=== PATIENT | male | born 1935 | race Caucasian/White ===

== ENCOUNTER 2019-03-30 11:49 | Inpatient (IN) | payer OTHER, BC ==
[2019-03-30] VITALS (8 sets, daily range): BP systolic 105–155
[~2019-03-30] VITALS: Ht 172.7 cm; Wt 94.8 kg
--- NOTE | 2019-03-30 12:14 | NUR ---
Patient to ER bed 8 to gown for evaluation. Side rails up. Report given to Kayla GARCIA.
--- NOTE | 2019-03-30 12:25 | NUR ---
pt arrives from an unknown board and care per Dr. Grover for increasing congestion and weakness. Pt is AAOx1. Currently non ambulatory. Crackles auscultated over epifanio lower lobes. Current os sat is 90% on RA. RT at the bedside to admin a breathing tx.
--- NOTE | 2019-03-30 12:48 | NUR ---
# 22 gauge angiocath placed to right hand. Use of asceptic technique. Opsite placed over site. Blood return noted. Blood for lab drawn from site. Flushed with 10 cc of normal saline. No evidence of infiltration noted. Patient tolerated well.
[2019-03-30] MEDS ORDERED: NACL 0.9% 1,000 ML IV ONE ×3 (12:49→15:00)
[2019-03-30] MEDS ORDERED: cefTRIAXone 1 GM IVPB PREMIX 50 ML IV ONE (13:00)
--- NOTE | 2019-03-30 13:00 | NUR ---
urine poonam obtained and sent to the lab
[2019-03-30 13:10] LABS: BASOPHILS % (AUTO) 0.3 % (0.0-2.0); EOSINOPHILS % (AUTO) 0.1 % (0.0-4.0); HEMATOCRIT 28.5 % (36-54); HEMOGLOBIN 9.1 g/dL (14.0-18.0); LYMPHOCYTES # (AUTO) 0.6 K/uL (1.0-5.5); LYMPHOCYTES % (AUTO) 4.2 % (20.5-51.5); MEAN CORPUSCULAR HEMOGLOBIN 29 pg (27-31); MEAN CORPUSCULAR HGB CONC 32 % (32-36); MEAN CORPUSCULAR VOLUME 92 fL (79.0-98.0); MONOCYTES # (AUTO) 1.1 K/uL (0.0-1.0); MONOCYTES % (AUTO) 7.5 % (1.7-9.3); NEUTROPHILS # (AUTO) 13.2 K/uL (1.8-7.7); NEUTROPHILS % (AUTO) 87.9 % (40.0-70.0); PLATELET COUNT (AUTO) 131 K/uL (130-430); RED BLOOD CELL COUNT(AUTO) 3.09 MIL/uL (4.2-6.2); RED CELL DISTRIBUTION WIDTH 18.7 % (9.0-15.0)
[2019-03-30 13:22] LABS: INR 1.5 (0.80-1.20); PROTHROMBIN TIME 15.2 SECS (9.5-12.5)
[2019-03-30 13:23] LABS: ANION GAP 8 (5-15); CALCIUM 7.5 mg/dL (8.4-11.0); CHLORIDE 105 mmol/L (98-107); CREATININE 0.77 mg/dL (0.55-1.30); GLUCOSE 111 mg/dL (70-99); POTASSIUM 3.2 mmol/L (3.5-5.1); SODIUM SERUM 141 mmol/L (136-145); UREA NITROGEN, BLOOD 26 mg/dL (8-21)
[2019-03-30 13:28] LABS: ALANINE AMINOTRANSFERASE 21 U/L (12-78); ALBUMIN 1.8 g/dL (3.4-4.8); AMYLASE 56 U/L (0-100); ASPARTATE AMINOTRANSFERASE 50 U/L (10-37); LIPASE 147 U/L (73-393)
--- NOTE | 2019-03-30 13:30 | NUR ---
Currently infusing Rocpehin per MD order
[2019-03-30 13:45] LABS: BILIRUBIN,URINE NEGATIVE (NEGATIVE); BLOOD, URINE NEGATIVE (NEGATIVE); CLARITY/URINE CLEAR (CLEAR); COLOR,URINE YELLOW (YELLOW); GLUCOSE,URINE NEGATIVE (NEGATIVE); KETONES,URINE TRACE (NEGATIVE); LEUKOCYTE ESTERASE ,URINE NEGATIVE (NEGATIVE); NITRITE, URINE NEGATIVE (NEGATIVE); PH,URINE 5.5 (5.0-8.0); PROTEIN URINE TRACE (NEGATIVE)
[2019-03-30] MEDS ORDERED: ALBUTEROL SULFATE 0.083% 2.5 MG/3 ML VIAL.NEB INH ONE (14:15)
[2019-03-30] MEDS ORDERED: AZITHROMYCIN 500 MG in NS 250 ML IV ONE (14:15)
[2019-03-30] MEDS ORDERED: IPRATROPIUM BROM 0.5 MG/2.5 ML VIAL.NEB (ATROVENT) INH ONE (14:15)
[2019-03-30] MEDS ORDERED: AZITHROMYCIN 500 MG/VIAL (ZITHROMAX) IV ONE (15:10)
--- NOTE | 2019-03-30 15:15 | NUR ---
Currently infusing Zithromax per MD order.
--- NOTE | 2019-03-30 15:36 | NUR ---
pt is infusing 2nd liter of NS. Rocpehin IVPB infused. Currently infusing Zithromax IVPB for sepsis protocol.
[2019-03-30] MEDS ORDERED: LIP80 PO (15:45)
[2019-03-30] MEDS ORDERED: BENA40TA8 PO (15:45)
[2019-03-30] MEDS ORDERED: ACET167L15 PO (15:45)
[2019-03-30] MEDS ORDERED: ISOS30TA6 PO (15:45)
[2019-03-30] MEDS ORDERED: METO25TA6 PO (15:45)
[2019-03-30] MEDS ORDERED: PRO40 PO (15:45)
[2019-03-30] MEDS ORDERED: ASPI-1153 PO (15:45)
--- NOTE | 2019-03-30 16:06 | NUR ---
Medication reconciliation completed with information provided by pt. Any prior medication reconciliation on file was reviewed and corrected.
--- NOTE | 2019-03-30 16:54 | NUR ---
pt will be admitted under the care of Dr. Grover orders received.
[2019-03-30] MEDS ORDERED: cefTRIAXone 1 GM IVPB PREMIX 50 ML IV SCH (17:15)
[2019-03-30] MEDS ORDERED: AZITHROMYCIN 500 MG in NS 250 ML IV SCH (18:00)
--- NOTE | 2019-03-30 18:30 | NUR ---
Sepsis Protocol: Pt received 3l of NS. Rocephin IV and Zithromax IV.
--- NOTE | 2019-03-30 18:48 | NUR ---
Transfer to ICU 1 via ACLS protocol. Licensed nurse present. IV present no signs or symptoms of infiltration.
--- NOTE | 2019-03-30 19:00 | NUR ---
AT 1838 P.M, ADMITTED PATIENT TO ICU ROOM 1, FROM [facility], RECEIVED NURSING REPORT FROM Alicia GIPSON R.N, THIS IS A 83 YEARS OLD MALE, DIAGNOSIS : WHITE OUT PNEUMONIA, PATIENT IS AWAKE, CONFUSION, URDU ONLY, VITAL SIGN:TEMPERATURE : 99.F,H.R 90 IS A-fib, RESPIRATORY RATE 26,O2 SAT. 92-93 % WITH NASAL CANNULA 2 LPM, B.P 155/84 [facility] ORDERED CONSULT BRANDIN HAWKINS AND SADIQ MIGUEL FOR PNEUMONIA
--- NOTE | 2019-03-30 19:17 | NUR ---
DR. GHOTRA CALLED BACK , WAS AWARE FOR NEW PATIENT PULMONARY CONSULT
--- NOTE | 2019-03-30 19:23 | NUR ---
GIVE COMPLETE NURSING REPORT TO USABILITY ARCHITECTWINIFRED GALLO R.N
--- NOTE | 2019-03-30 20:00 | NUR ---
RECEIVED AT 1838 FROM ER DEPT VIA XANDER AN 83 YO MALE, WITH DIAGNOSIS OF WHITEOUT PNA. AWAKE, ALERT, ORIENTEDX2. SPEAKS BASICALLY ERITREAN AND VERY LITTLE BROKEN VIETNAMESE. PT IS A POOR HISTORIAN. ON O2 AT 2L/MIN/NC. POX 94%. BREATH SOUNDS WITH CRACKLES. OCCASIONAL MOIST SEMI-PRODUCTIVE COUGH NOTED. BOWEL SOUNDS (+). PULSES PALPABLE. SKIN W/D. COLOR SATISFACTORY. HOB UP TO COMFORT. SIDE RAILS UPX3. CALL LIGHTS WITHIN REACH. AFB VS SR W/ LBBB. JUNG SCD'S PUT IN PLACE. DR GHOTRA HERE, SEEN PT. NEW ORDERS GIVEN TO BE IMPLEMENTED.
--- NOTE | 2019-03-30 20:25 | NUR ---
CONSULT - DR. Deepika BABCOCK Reason for Consultation: PNA Person Who was Notified: ESTEBAN Consulting Physician: DR. MYRIAM BABCOCK Embosser Operator Specialty: ID Ordering Physician: DR. MONROY
--- NOTE | 2019-03-30 20:50 | NUR ---
DR Deepika BABCOCK CALLED, UPDATED ON PT STATUS. STATES HE'LL SEE PT IN AM. .
--- NOTE | 2019-03-30 21:25 | NUR ---
VOIDED 80CC CLEAR YADI URINE VIA URINAL W/ 1 NURSE ASSIST.
[2019-03-30] MEDS ORDERED: IPRATROPIUM/ALBUTEROL SULFATE 3 ML AMPUL.NEB (DUONEB) INH PRN (21:30)
--- NOTE | 2019-03-30 22:00 | NUR ---
HS CARE DONE. TURNED AND REPOSITIONED.
[2019-03-30] MEDS ORDERED: PIPERACILLIN/TAZOBACTAM 3.375 GM/VIAL (ZOSYN) IV ONE (22:29)
[2019-03-30] MEDS: PIPERACILLIN/TAZO 3.375/DEX-IS 50 ML IV SCH (23:47)
[2019-03-31] VITALS (18 sets, daily range): BP systolic 97–144
--- NOTE | 2019-03-31 | NUR ---
AWAKE. MRSA SWAB SENT TO LAB. SOMETIMES DESATURATES. MOUTH BREATHER.
[2019-03-31] MEDS: IPRATROPIUM/ALBUTEROL SULFATE 3 ML AMPUL.NEB (DUONEB) INH SCH ×4 (00:40→20:19)
--- NOTE | 2019-03-31 02:00 | NUR ---
DOZES ON AND OFF. SHOUTING OUT WORDS, CALLING OUT NAMES WHEN ASLEEP.
--- NOTE | 2019-03-31 04:00 | NUR ---
SLEPT FOR LONG PERIODS OF TIME. VSS. 0 DISTRESS.
--- NOTE | 2019-03-31 05:00 | NUR ---
LEFT HAND IV INADVERTENTLY DISLODGED. IV RESTARTED ON RIGHT ANTECUBITAL USING ASEPTIC TECNIQUE, X 1 ATTEMPT, GAUGE # 20.
--- NOTE | 2019-03-31 05:10 | NUR ---
INCONTINENT OF URINE. CHG BATH GIVEN. ORAL CARE, LISANDRO-CARE, BACK CARE, SKIN CARE DONE. PARTIAL LINEN CHANGE. MINIMAL ASSIST WITH TURNING. ANITA PROC WELL.
[2019-03-31] MEDS: PIPERACILLIN/TAZO 3.375/DEX-IS 50 ML IV SCH ×4 (05:49→23:56)
--- NOTE | 2019-03-31 06:00 | NUR ---
BOUTS OF CONFUSION. TURNED Q2 HRS. CALLING OUT NAMES. REMAINS IN GUARDED CONDITION.
[2019-03-31 06:31] LABS: BASOPHILS # (AUTO) 0.1 K/uL (0.0-0.2); BASOPHILS % (AUTO) 0.4 % (0.0-2.0); EOSINOPHILS % (AUTO) 0.2 % (0.0-4.0); HEMATOCRIT 27.3 % (36-54); HEMOGLOBIN 8.7 g/dL (14.0-18.0); LYMPHOCYTES # (AUTO) 0.7 K/uL (1.0-5.5); LYMPHOCYTES % (AUTO) 5.4 % (20.5-51.5); MEAN CORPUSCULAR HEMOGLOBIN 30 pg (27-31); MEAN CORPUSCULAR HGB CONC 32 % (32-36); MEAN CORPUSCULAR VOLUME 93 fL (79.0-98.0); MONOCYTES # (AUTO) 1.2 K/uL (0.0-1.0); MONOCYTES % (AUTO) 9.1 % (1.7-9.3); NEUTROPHILS # (AUTO) 10.8 K/uL (1.8-7.7); NEUTROPHILS % (AUTO) 84.9 % (40.0-70.0); PLATELET COUNT (AUTO) 110 K/uL (130-430); RED BLOOD CELL COUNT(AUTO) 2.95 MIL/uL (4.2-6.2); RED CELL DISTRIBUTION WIDTH 18.9 % (9.0-15.0); WHITE BLOOD COUNT (AUTO) 12.7 K/uL (4.8-10.8)
[2019-03-31 06:39] LABS: ANION GAP 9 (5-15); CALCIUM 7.1 mg/dL (8.4-11.0); CHLORIDE 108 mmol/L (98-107); CREATININE 0.68 mg/dL (0.55-1.30); GLUCOSE 96 mg/dL (70-99); POTASSIUM 3.1 mmol/L (3.5-5.1); SODIUM SERUM 143 mmol/L (136-145); UREA NITROGEN, BLOOD 19 mg/dL (8-21)
[2019-03-31] MEDS: ACETYLCYSTEINE 20% 4 ML VIAL (RT) INH SCH ×3 (07:16→20:20)
--- NOTE | 2019-03-31 07:25 | NUR ---
Received patient from [facility] shift nurse. Patient in no acute distress.
--- NOTE | 2019-03-31 08:30 | NUR ---
Paged MD Grover for diet order.
[2019-03-31] MEDS ORDERED: POTASSIUM CHLORIDE 20 MEQ TAB.PRT.SR PO ONE (10:00)
--- NOTE | 2019-03-31 10:20 | NUR ---
MD Grover paged regarding diet order.
--- NOTE | 2019-03-31 11:30 | NUR ---
MD Grover paged a third time regarding diet order.
--- NOTE | 2019-03-31 11:48 | NUR ---
notes: paged MD MONROY for diet order, s/w bekah answering services. waiting to callback.
--- NOTE | 2019-03-31 13:50 | NUR ---
Called MD Grover for diet order, new order 2 gram sodium pureed diet, orders placed and contacted kitchen.
[2019-03-31] MEDS ORDERED: cefTRIAXone 1 GM IVPB PREMIX 50 ML IV SCH ×2 (14:00→17:00)
--- NOTE | 2019-03-31 14:10 | NUR ---
Patient refused lunch, stated not hungry.
--- NOTE | 2019-03-31 16:30 | NUR ---
Paged MD Grover regarding possible transfer to tele floor, order approved to change patient to tele status and transfer patient. Orders placed.
--- NOTE | 2019-03-31 16:38 | NUR ---
Stained Glass Installer Conduct interview for DCPA. OCCUPATIONAL THERAPIST'S ASSISTANT met with pt. He spoke Mongolian and a little Armenian. Pt was not able to assist with questions. When OCCUPATIONAL THERAPIST'S ASSISTANT asked if he had a contact, friend or family pt got a little upset, almost teary eyed. OCCUPATIONAL THERAPIST'S ASSISTANT left and stated she did not want to upset him. Earl Membreno thinks pt. is form [facility]. paperhanger assistantRn. Rosenbaum called to tell OCCUPATIONAL THERAPIST'S ASSISTANT Pt has a friend visiting. Earl Rosenbaum translated for OCCUPATIONAL THERAPIST'S ASSISTANT while she visited with pt. and pts. friend Priyank Henderson, . Priyank had a hard time explaining pts. background. He and pt. are just friends and Priyank would take pt to his soccer games. As pt. became more weak, he was not able to take him to the games. Priyank's called his soccer coaches , Delmis Mares, . OCCUPATIONAL THERAPIST'S ASSISTANT was able to get some background on pt. from Delmis who stated, pt. use to live at the address on the face sheet, [address] [place] [address] in [facility], [address]. The phone listed is , . Delmis said pt. lived there in this "[place] in [place]" for 30 years. When pt. had to be hospitalized in [place], the social group worker at that hospital was able to find him a room to rent in [place]. The woman who ran the board and care would come in and prep. meals twice a week and label the food for all the people who stayed there including this pt. Luis Fernando Redd Sevilla. They would all have to get their food, heat it up, do their own laundry etc. Delmis was upset because she stated ptNellie Gould was not capable of completing all these daily living skills it the cost was $900 of his $1000 Social Security income. It sounded like pt is not able to go back due to needed a higher level of care. Priyank stated pt. has no friends of family. OCCUPATIONAL THERAPIST'S ASSISTANT told him he was a good friend and thanked him for his assistance and connecting her to Delmis who was able to fill in some of the blanks. OCCUPATIONAL THERAPIST'S ASSISTANT will fill out a homeless waiver and fill our a DCPA with the limited info.
[2019-03-31] MEDS: AZITHROMYCIN 500 MG in NS 250 ML IV SCH (16:41)
[2019-03-31] MEDS ORDERED: AZITHROMYCIN 500 MG in NS 250 ML IV SCH (18:00)
--- NOTE | 2019-03-31 19:27 | NUR ---
Transferred patient to tele room 132 C, endorsed patient to oncoming shift nurse and gave report. Patient was transported by bed via portable tele monitor and portable 02 NC 2 liters. Patient tolerated transfer well, in no acute distress, denies pain. Breathing even and unlabored. Side rails x 3 up.
--- NOTE | 2019-03-31 19:35 | NUR ---
OPENING NOTES Patient is resting, no signs of acute respiratory distress observed, 2L NC. IV site patent, dressings c/d/i. SCDs on, call light within reach, bed at lowest position. Will continue to monitor.
--- NOTE | 2019-03-31 22:14 | NUR ---
Patient is confused, worried about going back to work, chinese speaking. Safety precautions in place. Will continue to monitor.
[2019-04-01] VITALS: BP_SYST 113
--- NOTE | 2019-04-01 00:15 | NUR ---
Patient is confused, reoriented patient that it is past midnight and that it is time to rest. Will continue to monitor.
[2019-04-01] MEDS: IPRATROPIUM/ALBUTEROL SULFATE 3 ML AMPUL.NEB (DUONEB) INH SCH ×4 (01:11→19:53)
--- NOTE | 2019-04-01 02:23 | NUR ---
Patient is resting, no signs of acute respiratory distress observed, 3L NC. IV Saline lock. Will continue to monitor.
--- NOTE | 2019-04-01 04:11 | NUR ---
Patient is resting, confused and speaking continuously, IV site patent, Will continue to monitor.
[2019-04-01] MEDS: PIPERACILLIN/TAZO 3.375/DEX-IS 50 ML IV SCH ×3 (05:15→18:04)
--- NOTE | 2019-04-01 07:03 | NUR ---
CLOSING NOTES Patient is resting, no signs of acute respiratory distress observed, 3L NC. IV site patent, dressings c/d/i. Call light within reach, bed alarm on, bed at lowest position. All needs met throughout shift. Will endorse care to oncoming shift.
[2019-04-01 07:07] LABS: BASOPHILS % (AUTO) 0.4 % (0.0-2.0); EOSINOPHILS % (AUTO) 0.2 % (0.0-4.0); HEMATOCRIT 25.4 % (36-54); HEMOGLOBIN 8.2 g/dL (14.0-18.0); LYMPHOCYTES # (AUTO) 0.6 K/uL (1.0-5.5); LYMPHOCYTES % (AUTO) 4.9 % (20.5-51.5); MEAN CORPUSCULAR HEMOGLOBIN 30 pg (27-31); MEAN CORPUSCULAR HGB CONC 32 % (32-36); MEAN CORPUSCULAR VOLUME 92 fL (79.0-98.0); MONOCYTES # (AUTO) 1.1 K/uL (0.0-1.0); MONOCYTES % (AUTO) 9.3 % (1.7-9.3); NEUTROPHILS % (AUTO) 85.2 % (40.0-70.0); PLATELET COUNT (AUTO) 102 K/uL (130-430); RED BLOOD CELL COUNT(AUTO) 2.77 MIL/uL (4.2-6.2); RED CELL DISTRIBUTION WIDTH 18.5 % (9.0-15.0); WHITE BLOOD COUNT (AUTO) 11.8 K/uL (4.8-10.8)
[2019-04-01] MEDS: ACETYLCYSTEINE 20% 4 ML VIAL (RT) INH SCH ×2 (07:22→19:55)
--- NOTE | 2019-04-01 07:50 | NUR ---
AM ASSESSMENT. PT SPEAKS INDONESIAN, STAFF TRANSLATED WORDS, PT AFEBRILE, REPOSITIONED IN BED, LUNGS SOUNDS CONGESTED, BREATHING NON LABORED, ON O2 AT 3L MIN VIA NASAL CANNULA, SAT UP HIGH IN BED PRIOR TO BREAKFAST, WILL CONTINUE TO MONITOR.
[2019-04-01 08:00] VITALS: BP_SYST 109
--- NOTE | 2019-04-01 09:40 | NUR ---
Nutrition Update Garry Scale 15 noted. Pt admitted for white out pneumonia. Diet: 2 gm Na, puree BMI: 31.9 kg/m2 RD to follow per nutrition care standards.
--- NOTE | 2019-04-01 11:50 | NUR ---
IV. RIGHT FOREARM IV INFILTRATED, IV CATHETER DCD. NEW IV INSERTED INTO LEFT HAND, USING 20 GAUGE CATHETER, GOOD BLOOD RETURN NOTED.
--- NOTE | 2019-04-01 12:11 | NUR ---
CONSULT NEUROLOGY INCREASED CONFUSION ASHER ORTA [phone] S/W [place] EXCHANGE
[2019-04-01 12:45] VITALS: BP_SYST 120
--- NOTE | 2019-04-01 14:21 | NUR ---
DISCHARGE PLANNING Spoke reese Mares @ bedside. States that she is a friend of pt, that pt has no family, had a son that in automobile accident. States pt's closest friend is Miguel Henderson, he drives pt & visits him often. Would like SNF in [facility] since that is where Krystian lives. No Advanced Directive or POA, would like to have one done w Miguel as POA once pt is alert & oriented.
--- NOTE | 2019-04-01 14:36 | NUR ---
Dietitian Recommendations * Recommend continuing 2 gm Na, puree diet (ONS Ensure Enlive TID comes standard w/ this diet; provides 1050 kcal/day, 60 gm protein/day) * Encourage increase PO intakes LP, RD Please refer to Nutrition Assessment for details. Addendum: 04/01/19 at [address] Amended: Links added.
[2019-04-01] MEDS: AZITHROMYCIN 500 MG in NS 250 ML IV SCH (15:04)
--- NOTE | 2019-04-01 15:37 | NUR ---
Discharge Planning: WVP faxed pt referral to [facility] and [facility]. DCP to follow up. Addendum: 04/01/19 at 1647 by Tsering Escobedo DP DCP faxed referral to Yuridia eddy ZortmanNellie DCP to follow up
--- NOTE | 2019-04-01 16:13 | NUR ---
Board Certified Behavioral Analyst Note Patient referred by Dr Smith regarding patient's ability to consent to a bronchoscopy. WATER LEAK REPAIRER spoke with patient's friends, Delmis Vishnu [phone], and Edison Mixon, . They stated that patient has made his own decisions in the past. He was not coherent yesterday but is much better today. Another friend, Juan Antonio Henderson, , who has known patient for 20 years, is willing to sign consents for patient when needed. Provided Advanced Directivein Irish. WATER LEAK REPAIRER met with patient and friends at bedside. Patient is drowsy and primarily speaks Irish. Patient was able to communicate and, with friends translating, agreed that he would want a bronchoscopy done. WATER LEAK REPAIRER explained that in order to get the formal consent signed, a doctor or nurse would need to explain the procedure in more detail with a strength and conditioning coach. Patient also agreed that he would like his friend, Juan Antonio, to assist with decision making. Juan Antonio visits patient regularly and plans to visit [facility]. At this moment, patient appears to be able to sign his own consent. Housing history as per friendDelmis: At a private residence in [place] for 30 years, cannot return. To [facility] then to a SNF for about one week (at this time unknown). To an assisted living run by Camille, , [id number] [facility] [address]. Patient may need SNF before returning to the assisted living, or intermediate SNF. Left Camille a voicemail asking for the name of the SNF. Delmis may also be able to provide the name of the SNF tomorrow. Will continue to follow. Addendum: 04/01/19 at 1646 by Lorri Farrell LCSW Emailed Sharri in Admitting updated information for face sheet. Addendum: 04/01/19 at 1647 by Lorri Farrell LCSW As explained in earlier SS note, patient has no family.
[2019-04-01 16:22] VITALS: BP_SYST 105
--- NOTE | 2019-04-01 16:30 | NUR ---
IV. PT SEEN BLEEDING FROM HIS ARM, JUST PULLED OUT HIS IV FROM LEFT HAND. A NEW IV INSERTED INTO RIGHT WRIST, USING 20 GAUGE CATHETER, WITH GOOD BLOOD RETURN NOTED.
--- NOTE | 2019-04-01 18:00 | NUR ---
DIET. PT SERVED WITH DINNER TRAY, MILD ASSISTANCE NEEDED, ABLE TO FEED HIMSELF.
--- NOTE | 2019-04-01 19:15 | NUR ---
OPENING NOTES RECEIVED PATIENT IN BED AWAKE/CONFUSED. BREATHING LABORED ON EXERTION. PT ON 02 3L NC. DENIES ANY PAIN AT THIS TIME. HOB ELEVATED 45 DEGREES. BED IN LOWEST LOCKED POSITION WITH ALARM ON. CALL LIGHT WITH IN EASY REACH.
--- NOTE | 2019-04-01 21:00 | NUR ---
ROUNDS PATIENT IN BED AWAKE/CONFUSED TALKING TO HIMSELF. DENIES PAIN. RT WRIST IV LINE INTACT.
[2019-04-01 21:06] VITALS: BP_SYST 122
--- NOTE | 2019-04-01 23:32 | NUR ---
ROUNDS PATIENT AWAKE CONTINUOUSLY TALKING TO HIMSELF. NO DISTRESS NOTED. FALL PRECAUTIONS IN PLACED. HOB ELEVATED 45 DEGREES.
[2019-04-02 00:15] VITALS: BP_SYST 109
[2019-04-02] MEDS: PIPERACILLIN/TAZO 3.375/DEX-IS 50 ML IV SCH ×4 (00:21→17:50)
--- NOTE | 2019-04-02 00:30 | NUR ---
ROUNDS PATIENT RESTING IN BED. EYES CLOSED. NO DISTRESS NOTED. DUE ANTIBIOTIC INFUSED. VITAL SIGNS STABLE.
--- NOTE | 2019-04-02 02:33 | NUR ---
ROUNDS PATIENT AWAKE TALKING TO HIMSELF. FALL PRECAUTIONS IN PLACED.
[2019-04-02] MEDS: IPRATROPIUM/ALBUTEROL SULFATE 3 ML AMPUL.NEB (DUONEB) INH SCH ×4 (02:48→19:41)
--- NOTE | 2019-04-02 05:25 | NUR ---
SPUTUM PATIENT SUCTIONED NASALLY OBTAINED SPECIMEN FOR SPUTUM CULTURE ORDERED.
--- NOTE | 2019-04-02 05:40 | NUR ---
AM CARE INCONTINENCE CARE DONE. NO BM. LINENS CHANGED.
--- NOTE | 2019-04-02 06:35 | NUR ---
CLOSING NOTES PATIENT RESTING IN BED. PATIENT NEEDS ATTENDED. BED IN LOWEST LOCKED POSITION. HOB ELEVATED.
[2019-04-02 06:55] LABS: BASOPHILS % (AUTO) 0.3 % (0.0-2.0); EOSINOPHILS % (AUTO) 0.3 % (0.0-4.0); HEMATOCRIT 24.2 % (36-54); LYMPHOCYTES % (AUTO) 7.3 % (20.5-51.5); MEAN CORPUSCULAR HEMOGLOBIN 30 pg (27-31); MEAN CORPUSCULAR HGB CONC 33 % (32-36); MEAN CORPUSCULAR VOLUME 93 fL (79.0-98.0); MONOCYTES # (AUTO) 1.4 K/uL (0.0-1.0); MONOCYTES % (AUTO) 10.7 % (1.7-9.3); NEUTROPHILS # (AUTO) 10.8 K/uL (1.8-7.7); NEUTROPHILS % (AUTO) 81.4 % (40.0-70.0); RED BLOOD CELL COUNT(AUTO) 2.62 MIL/uL (4.2-6.2); RED CELL DISTRIBUTION WIDTH 19.1 % (9.0-15.0); WHITE BLOOD COUNT (AUTO) 13.3 K/uL (4.8-10.8)
[2019-04-02 07:05] LABS: ANION GAP 3 (5-15); CALCIUM 7.6 mg/dL (8.4-11.0); CHLORIDE 108 mmol/L (98-107); CREATININE 0.99 mg/dL (0.55-1.30); GLUCOSE 139 mg/dL (70-99); POTASSIUM 3.3 mmol/L (3.5-5.1); SODIUM SERUM 139 mmol/L (136-145); UREA NITROGEN, BLOOD 24 mg/dL (8-21)
[2019-04-02 07:10] VITALS: BP_SYST 102
[2019-04-02] MEDS: ACETYLCYSTEINE 20% 4 ML VIAL (RT) INH SCH ×3 (07:13→19:41)
[2019-04-02 07:44] VITALS: BP_SYST 102
[2019-04-02 07:50] LABS: INR 1.4 (0.80-1.20); PROTHROMBIN TIME 14.4 SECS (9.5-12.5)
[2019-04-02 08:19] LABS: HEMOGLOBIN 7.9 g/dL (14.0-18.0)
--- NOTE | 2019-04-02 09:55 | NUR ---
SS NOTES/PREVIOUS SNF: METAL SPRAYER received a call from Delmis pt's friend who stated pt was admittd at [facility] (p: [phone]) after his admission at [facility] in February 2001. Addendum: 04/02/19 at 1021 by Inga Sylvester METAL SPRAYER METAL SPRAYER received a call from Camille (p: [phone]) from the [facility] where pt was living prior to admission. Per Camille, pt was admitted at [facility] then discharged to [facility] from 02/28- 03/14. When patient was discharged, the SW's at the SNF found out that the patient was getting evicted at his home (someone's garage that he was living in for a while), but the patient was able to stay at his "home" for a couple of days and was referred to stay at [facility] from 03/16-03/30. Per Camille, she is in contact with Abby Dean (p: [phone]) from [facility], where the patient might go after discharged from [facility] if indicated.
--- NOTE | 2019-04-02 11:05 | NUR ---
NTS PERFORMED, MED, THICK YELLOW WITH BLOODY TINGED SPUTUM. PT ANITA, NO DISTRESS NOTED Addendum: 04/02/19 at 1125 by Keyona Fierro RT Amended: Links added.
[2019-04-02] MEDS ORDERED: PHYTONADIONE 10 MG/ML AMP SUBCUT ONE (11:15)
--- NOTE | 2019-04-02 11:15 | NUR ---
Assumed care of pt. Pt states no pain or distress currently.
--- NOTE | 2019-04-02 11:22 | NUR ---
Consent signature complete. Patient spoke with MD regarding risks. Endorsement to next RN. Min Steawrt RN
[2019-04-02 11:29] VITALS: BP_SYST 104
[2019-04-02 12:38] LABS: PLATELET COUNT (AUTO) 97 K/uL (130-430)
[2019-04-02 15:07] VITALS: BP_SYST 96
--- NOTE | 2019-04-02 15:38 | NUR ---
CONSULTATION Reason for Consultation: UTI Was consult called: Y Person who was notified: LES Consulting Physician: Cheko Holder Cap Maker Ordering Physician: Reilly
[2019-04-02] MEDS: AZITHROMYCIN 500 MG in NS 250 ML IV SCH (15:47)
--- NOTE | 2019-04-02 16:00 | NUR ---
Pt states no pain or distress at this time.
--- NOTE | 2019-04-02 19:20 | NUR ---
Endorsed plan of care to retail pharmacy merchandiser RN. Pt in no signs of distress or pain. Pt drowsy but arousable.
[2019-04-02 19:40] VITALS: BP_SYST 119
--- NOTE | 2019-04-02 19:40 | NUR ---
INITIAL NOTES PATIENT IS LAYING IN BED AND STABLE. NO S/S OF RESPIRATORY DISTRESS NOTED.PATIENT VERBALIZES NO PAIN. PATIENT UNSUCCESSFULLY DEMONSTRATES USAGE OF CALL LIGHT AT THIS TIME. WILL CONTINUE TO MONITOR. FALL, SAFETY, ASPIRATION, AND RESPIRATORY PRECAUTIONS WILL BE IN PLACE THROUGHOUT THE SHIFT. PLAN OF CARE IS DISCUSSED WITH PATIENT AT THIS TIME. BED IS LOCKED, ALARMED, AND AT THE LOWEST POSITION.
--- NOTE | 2019-04-02 21:40 | NUR ---
ROUNDING PATIENT IS SLEEPING IN BED AND STABLE. NO S/S OF RESPIRATORY DISTRESS NOTED. CALL LIGHT IN REACH. BED IS LOCKED, ALARMED, AND AT THE LOWEST POSITION.
[2019-04-03 00:11] VITALS: BP_SYST 124
[2019-04-03] MEDS: PIPERACILLIN/TAZO 3.375/DEX-IS 50 ML IV SCH ×5 (00:11→23:58)
[2019-04-03] MEDS: IPRATROPIUM/ALBUTEROL SULFATE 3 ML AMPUL.NEB (DUONEB) INH SCH ×4 (01:38→19:39)
--- NOTE | 2019-04-03 05:00 | NUR ---
CHANGED AND CLEANED PATIENT AT THIS TIME. CHANGED LINENS AND CLEANSED PATIENT AT THIS TIME. PATIENT TOLERATED WELL. NO S/S OF RESPIRATORY DISTRESS. CALL LIGHT IN REACH. BED IS LOCKED, ALARMED, AND AT THE LOWEST POSITION.
--- NOTE | 2019-04-03 07:32 | NUR ---
CLOSING NOTES PATIENT IS STABLE AND LAYING IN BED. NO S/S OF RESPIRATORY DISTRESS NOTED. CALL LIGHT IN REACH. BED IS LOCKED, ALARMED, AND AT THE LOWEST POSITION. FALL, SAFETY, ASPIRATION, AND RESPIRATORY PRECAUTIONS HAS BEEN PLACED THROUGHOUT THE SHIFT. REPORT WAS GIVEN TO JOSE CIFUENTES BY BEDSIDE. PROCEDURES ENDORSED TO AM NURSE.
[2019-04-03] MEDS: ACETYLCYSTEINE 20% 4 ML VIAL (RT) INH SCH ×2 (07:48→13:59)
--- NOTE | 2019-04-03 08:00 | NUR ---
RN INITIAL NOTES RECEIVED PATIENT IN BED ALERT AWAKE AND VERBALLY RESPONSIVE IN HAITIAN , PATIENT WITH MARKED CRACKLES ON BREATHING , PATIENT HOB ELEVATED AND PATIENT ABLE TO FOLLOW INSTRUCTION , MAINTAINED NPO FOR BRONCHOSCOPY THIS 1430 TODAY , INFORMED PATIENT HE WANTS TO DRINK AND HAVE JELLO BUT INFORMED ABOUT NPO AND PLAN OF CARE TODAY
[2019-04-03 08:15] VITALS: BP_SYST 125
--- NOTE | 2019-04-03 10:00 | NUR ---
DR GHOTRA/PULMONOLOGY PATIENT KEEP ON NPO , MD CAME AND AWARE PATIENT WAS THE ONE CONSENTED HIS BRONCHOSCOPY PROCEDURE , PER MD PATIENT IS NOT COHERENT ENOUGH TO SIGN HIS OWN CONSENT , BRONCHOSCOPY DC AND PATIENT OK TO EAT , CONT. WITH DEEP SUCTIONING BY RT ASSIST , DR GHOTRA AWARE PATIENT WITH DEEP CONGESTION AND CRACKLES IS MARKED , PATIENT KEEP ON HBR AND ON ASPIRATION PRECAUTION
--- NOTE | 2019-04-03 10:23 | NUR ---
Discharge Planning Patient's friend, Delmis called. She wanted an update on patient. She plans to visit tonight Discussed that patient was happy with his care at [facility] for two weeks in February 2019. Patient's friend, Priyank, would like him to go to a SNF in [place] so he can easily visit patient. It seems there may be a plan for patient to possibly be discharged to [facility] in [place]. Asked Delmis to discuss further with Priyank and patient this evening. Will also give the information to patient. Noted face sheet has not been updated. Phoned Sharri in Admitting and requested update be done. Addendum: 04/03/19 at 1111 by Lorri Farrell LCSW Met with patient and operations research manager at bedside. Patient was focused on his thirst and discomfort. We were unable to move to a discussion of post discharge placement. He appears more confused than when I last saw him on 04/01/19. Spoke with Peter GARCIA who will arrange for oral care and suction. At this time, the bronchoscopy may not be done due to the patient's increased confusion and consent issues. Notified Delmis, .
[2019-04-03] MEDS ORDERED: fentaNYL CITRATE/PF 100 MCG/2 ML AMP ONE ×2 (10:51→10:52)
[2019-04-03] MEDS ORDERED: MIDAZOLAM HCL 5 MG/5 ML VIAL ONE ×2 (10:52→10:53)
[2019-04-03] MEDS ORDERED: SIMETHICONE 40 MG/0.6 ML ML ONE (10:53)
--- NOTE | 2019-04-03 12:00 | NUR ---
DR MONROY ROUNDS PATIENT SEEN BY DR MONROY , INFORMED BRONCHOSCOPY IS NOT DOABLE A THIS TIME D/T CONSENT FROM THE PATIENT IS NOT ACCEPTED , WILL CONT PLAN OF CARE A THIS TIME
[2019-04-03 12:17] VITALS: BP_SYST 119
--- NOTE | 2019-04-03 14:00 | NUR ---
ROUNDS PATIENT NOT IN ANY DISTRESS , SUCTIONING PRN DONE AND TOLERATED , ORAL CARE DONE AND MADE COMFORTABLE
[2019-04-03] MEDS: AZITHROMYCIN 500 MG in NS 250 ML IV SCH (15:50)
--- NOTE | 2019-04-03 16:00 | NUR ---
ROUNDS SLEEPING AT THIS TIME BUT STILL WITH MARKED CRACKLES WHEN BREATHING NO DISTRESS, MAINTAINED HOB ELEVATED
[2019-04-03 16:15] VITALS: BP_SYST 121
--- NOTE | 2019-04-03 17:39 | NUR ---
END RN NOTES PATIENT INTERMITTENTLY SLEEPING NO DISTRESS BUT STILL WITH MARKED CRACKLES HEARD WHEN HE IS BREATHING , PRN SUCTIONING AND PATIENT DENIES ANY PAIN AT THIS TIME.HOB ELEVATED AND ON ASPIRATION PRECAUTION.
--- NOTE | 2019-04-03 19:10 | NUR ---
OPENING NOTES Receive report from JOSE Williamson. Patient AOx1, confusion noted. On 3L of oxygen via nasal cannula, attached and secured saturating at 89%. Crackles are noted upon auscultation, RT at bedside, attempted to suctioned, patient refusing. Charge nurse made aware, Charge nurse attempted to suction, with help of RN and RT, able to suctioned at this time. Oxygen saturation at 92% after suctioning. IV site, patency noted. SCD's operating well. Call light within reach. Bed locked and in lowest position. Bed alarm on. Safety precautions in place. Will continue to monitor patient.
[2019-04-03 20:46] VITALS: BP_SYST 113
--- NOTE | 2019-04-03 22:30 | NUR ---
DECREASE 02 SAT Developmental Specialist made RN aware that patient's oxygen level is at 80%. Attempted to suctioned but patient refusing. Another RN helped to hold patient. Suctioned was able to perform but oxygen level is still decrease at 89%. Charge nurse made aware. Will inform MD regarding patients condition. Patient Removed pulse oximeter, trying to remove nasal cannula. Patient speaking somali, Yazmin tumbling instructor able to translate, confusion is noted. Will continue to monitor patient, will call
--- NOTE | 2019-04-03 22:48 | NUR ---
SPOKE WITH MD Dr. Grover made aware of patients condition. New orders given. Will transfer to ICU. Patient on Non rebreather mask on 100% oxygen saturation at this time. Confusion still noted and still trying to remove pulse oximeter, telemonitor, non-rebreather mask. MD ordered for restraints. Patients on restraints at this time, no injury noted. Will continue to monitor until transfer.
--- NOTE | 2019-04-03 22:48 | NUR ---
PAGED PAGED DOCTOR MONROY
--- NOTE | 2019-04-03 22:55 | NUR ---
PAGED PAGED DOCTOR BRANDIN
[2019-04-03 23:08] VITALS: BP_SYST 132
--- NOTE | 2019-04-03 23:08 | NUR ---
RECEIVED FROM [facility] [[email or web address] VIA BED AN 83 YO MALE WITH DIAGNOSIS OF RIGHT WHITE OUT PNEUMONIA DUE TO DESATURATION IN MST AND RESPIRATORY DISTRESS. LETHARGIC, PASHTO SPEAKING. ON O2 AT 100% NON-REBREATHER. POX 100%. SR W/VC'S. INCONTINENT OF URINE. JUNG WRIST RETRAINTS ON FOR SAFETY. SCD'S IN PLACE.
--- NOTE | 2019-04-03 23:08 | NUR ---
TRANSFER TO ICU Patient safely transported via gurney to ICU, report given to Isaias GARCIA. No signs of respiratory distress at this time. Patient on Non-rebreather mask, attached and secured. Crackles noted. On bilateral wrist restraints, no injury noted. IV site, patency noted. On SCD's. Endorsed to JOSE Esparza for continuity of care.
--- NOTE | 2019-04-03 23:40 | NUR ---
ABG RESULTS REPORTED TO DR GHOTRA. UPDATED ON STATUS. NEW ORDERS GIVEN TO BE IMPLEMENTED.
--- NOTE | 2019-04-03 23:45 | NUR ---
PLACED ON HI FLOW 35L/MIN, FIO2 60% BY RT PER TITRATE ORDERS.
[2019-04-04] VITALS (24 sets, daily range): BP systolic 91–133
--- NOTE | 2019-04-04 | NUR ---
MORE ALERT, YET STILL CONFUSED. REMOVED HI FLOW INSPITE OF RESTRAINTS. DESATURATES. INSTRUCTED NOT TO REMOVE HI FLOW O2. INCONTINENT OF URINE, CLEANED.
[2019-04-04] MEDS: IPRATROPIUM/ALBUTEROL SULFATE 3 ML AMPUL.NEB (DUONEB) INH SCH ×4 (01:02→21:07)
--- NOTE | 2019-04-04 02:00 | NUR ---
RT ATTEMPTED TO SUCTION PT NASOTRACHEALLY. PT REFUSED VEHEMENTLY DESPITE EXPLANATIONS BY RT. PULSES PALPABLE. TURNED.
--- NOTE | 2019-04-04 04:00 | NUR ---
DOZES ON AND OFF. VSS. TURNED. CIRCULATION CHECK DONE. ATTEMPTS TO REMOVE HI FLOW, INSTRUCTED NOT TO.
--- NOTE | 2019-04-04 05:00 | NUR ---
EXPECTORATING AND SPITTING UP PINK TINGED PHLEGM. NASOTRACHEAL SUCTIONING DONE BY RT WITH COPIOUS AMOUNTS OF THICK PINK TINGED MUCUS OBTAINED. ORAL CARE GIVEN. INCONTINENT OF URINE. CHG BATH DONE. LISANDRO-CARE, BACK CARE, SKIN CARE DONE. PARTIAL LINEN CHANGE. DOES NOT ASSIST WITH TURNING. ANITA PROC WELL.
[2019-04-04 05:35] LABS: BASOPHILS # (AUTO) 0.1 K/uL (0.0-0.2); BASOPHILS % (AUTO) 0.5 % (0.0-2.0); EOSINOPHILS % (AUTO) 0.2 % (0.0-4.0); HEMATOCRIT 27.6 % (36-54); HEMOGLOBIN 8.6 g/dL (14.0-18.0); LYMPHOCYTES % (AUTO) 5.2 % (20.5-51.5); MEAN CORPUSCULAR HEMOGLOBIN 29 pg (27-31); MEAN CORPUSCULAR HGB CONC 31 % (32-36); MEAN CORPUSCULAR VOLUME 95 fL (79.0-98.0); MONOCYTES # (AUTO) 1.6 K/uL (0.0-1.0); MONOCYTES % (AUTO) 8.8 % (1.7-9.3); NEUTROPHILS # (AUTO) 15.7 K/uL (1.8-7.7); NEUTROPHILS % (AUTO) 85.3 % (40.0-70.0); RED BLOOD CELL COUNT(AUTO) 2.92 MIL/uL (4.2-6.2); RED CELL DISTRIBUTION WIDTH 19.2 % (9.0-15.0)
[2019-04-04 05:45] LABS: ANION GAP 2 (5-15); CALCIUM 8.1 mg/dL (8.4-11.0); CHLORIDE 109 mmol/L (98-107); CREATININE 0.92 mg/dL (0.55-1.30); GLUCOSE 113 mg/dL (70-99); POTASSIUM 3.9 mmol/L (3.5-5.1); SODIUM SERUM 141 mmol/L (136-145); UREA NITROGEN, BLOOD 29 mg/dL (8-21)
[2019-04-04] MEDS: PIPERACILLIN/TAZO 3.375/DEX-IS 50 ML IV SCH ×3 (05:45→17:26)
--- NOTE | 2019-04-04 06:00 | NUR ---
MOANS AT TIMES. REMAINS IN GUARDED CONDITION.
[2019-04-04 07:25] LABS: WHITE BLOOD COUNT (AUTO) 18.4 K/uL (4.8-10.8)
--- NOTE | 2019-04-04 07:30 | NUR ---
Opening Note Received patient report from endorsing RN via SBAR communication
[2019-04-04] MEDS: ACETYLCYSTEINE 20% 4 ML VIAL (RT) INH SCH ×3 (08:01→21:07)
--- NOTE | 2019-04-04 08:10 | NUR ---
Nursing Note Patient is lying in bed with eyes open. Patient is alert to self, is wrong about place, time, and event. S1, S2 heart sounds present, peripheral pulses are present and equal bilaterally, +2; Pitting edema +1 present in left upper extremity. Patient is on high flow nasal canula at 35L, 60% FiO2, crackles present throughout lung martínez. Bowel sounds are active in all 4 quadrants, patient is incontinent for urine. Weakness present in extremities, patient is on bedrest. Bed is in lowest position, HOB is elevated.
--- NOTE | 2019-04-04 08:10 | NUR ---
Round Dr. Cheko Howell at bedside assessing patient, no new orders. signed consent for bronchoscopy after determining that patient is unable to do so
--- NOTE | 2019-04-04 10:00 | NUR ---
MD Call Dr. Grover contacted regarding patient, informed consent faxed to
--- NOTE | 2019-04-04 11:00 | NUR ---
Nursing Note Patient placed on 50% FiO2 by RT, patient's O2 saturation at 97%. Patient has no signs of distress. Consent for bronchoscopy signed by 2 MDs and placed in patient chart.
[2019-04-04 12:41] LABS: PLATELET COUNT (AUTO) 88 K/uL (130-430)
[2019-04-04] MEDS: AZITHROMYCIN 500 MG in NS 250 ML IV SCH (14:20)
--- NOTE | 2019-04-04 14:30 | NUR ---
Round Dr. Smith at bedside assessing patient, physician entered orders
--- NOTE | 2019-04-04 16:12 | NUR ---
Nutrition F/U RD reviewed pt's current EMR record including diet Hx, physician notes, nursing notes, pertinent labs/meds/procedures, care trends, and care activity. Admission Dx: White out pneumonia PMH: HLD, HTN, recent Sx per physician notes Current Diet Order/Nutrition Support: 2 gm Na x1 day Subjective Info: Pt seen resting in bed, seemingly confused. No family/friends present at bedside. RN reported that pt was offered both breakfast and lunch today, but pt only ate a bit of the eggs at breakfast, and fish and rice at lunch. He also noted that pt has been able to tolerate liquids well, and pt seems to enjoy orange juice. PO intakes have consistently been negligible since admission per EMR. Bedscale wt taken: 189# -- unsure of reliability. Pt may benefit from ONS for optimal nutrition. Current % PO Negligible <25% Estimated Energy Expenditure (kcals/day) 9449-9357 kcal/day (MSJ x 1.2-1.5 CBW for sepsis) Estimated Protein Required (g/day) 114-152 gm/day (1.5-2 gm/kg Adj IBW for sepsis) Estimated Fluid Required (l/day) 2.4-2.9 L/day (25-30 ml/kg CBW for geriatric maintenance) Problem/Etiology/Signs/Symptoms Increased nutritional needs related to metabolic demands as evidenced by estimated nutritional requirements for sepsis. *ongoing Expected Outcomes/Goals - Monitor appetite and PO intakes w/ goal of pt meeting at least 50% of estimated nutritional needs, labs trending WNL, normal GI function, and skin integrity/wt maintenance Dietitian Recommendations * Recommend 2 gm Na diet w/ Ensure Enlive TID (ONS provides 1050 kcal/day, 60 gm protein/day) * Encourage increase PO intakes Follow Up High Risk: F/U in 2-3 days
--- NOTE | 2019-04-04 16:16 | NUR ---
Dietitian Recommendations * Recommend 2 gm Na diet w/ Ensure Enlive TID (ONS provides 1050 kcal/day, 60 gm protein/day) * Encourage increase PO intakes LP, RD Please refer to Nutrition F/U for details.
--- NOTE | 2019-04-04 19:08 | NUR ---
Closing Note Patient report given to nightshift RN via SBAR communication
--- NOTE | 2019-04-04 20:00 | NUR ---
AWAKE, ALERT TO NAME. DISORIENTED TO PLACE, TIME AND CIRCUMSTANCE. REORIENTED. ON O2 AT 35L/MIN 50% VIA HI FLOW. BREATH SOUNDS WITH CRACKLES. OCCASIONALLY EXPECTORATES THICK PINK PHLEGM AND SPITS IT OUT. SUCTIONED BUCCAL CAVITY. SR-ST W/ PVC'S. BILATERAL SOFT WRIST RESTRAINTS ON FOR SAFETY. UPPER EXTREMITIES WITH PITTING EDEMA +1 . ALVARENGA CATH PATENT DRAINING CLEAR YADI URINE TO GRAVITY. INCONTINENT OF URINE. DR MONROY IN HERE EARLIER ASSESSED PT. NEW ORDERS GIVEN TO BE IMPLEMENTED.
[2019-04-05] VITALS (36 sets, daily range): BP systolic 82–138
[2019-04-05] MEDS: PIPERACILLIN/TAZO 3.375/DEX-IS 50 ML IV SCH ×5 (00:06→23:50)
--- NOTE | 2019-04-05 01:00 | NUR ---
OGT INSERTED AFTER INTUBATION. AUSCULTATED FOR PLACEMENT. CLAMPED.
--- NOTE | 2019-04-05 01:10 | NUR ---
0110 pt was intubated with 8.0 ett @ 27cm lip line by ed . bagged with 100% fio2 before and after intubation. b/s decreased on the rt.. co2 cap +. post cxr pulled back ett 2cm to 25cm lip line.
[2019-04-05] MEDS ORDERED: PROPOFOL DRIP 100 ML IV PRN (01:45)
--- NOTE | 2019-04-05 02:15 | NUR ---
1 LARGE LBM, CLEANED. CHG BATH GIVEN. COMPLETE LINEN CHANGE. BACK CARE, SKIN CARE, LISANDRO-CARE RENDERED. ANITA WELL.
[2019-04-05] MEDS: IPRATROPIUM/ALBUTEROL SULFATE 3 ML AMPUL.NEB (DUONEB) INH SCH ×4 (02:25→20:58)
--- NOTE | 2019-04-05 02:45 | NUR ---
ALVARENGA CATH: # 16 FR Alvarenga catheter with 10 cc bulb inserted with use of sterile technique. Bulb inflated with 10 cc sterile water. Immediate return of 5 cc urine noted. Bedside drainage bag placed below level of bladder. Pt tolerated procedure well.
--- NOTE | 2019-04-05 02:50 | NUR ---
DR GHOTRA UP DATED ON STATUS. ABG'S REPORTED. NEW ORDERS GIVEN TO BE IMPLEMENTED.
[2019-04-05] MEDS ORDERED: NS 500 ML IV ONE (03:00)
[2019-04-05] MEDS: NACL 0.9% 1,000 ML IV SCH ×3 (03:11→20:58)
[2019-04-05] MEDS ORDERED: MORPHINE 2 MG/ML INJ. SYRINGE IVP PRN (03:15)
[2019-04-05] MEDS ORDERED: NOREPINEPHRINE BITARTRATE 4 MG in D5W 246 ML IV PRN (03:15)
--- NOTE | 2019-04-05 03:30 | NUR ---
BP 59/39, LEVOPHED STARTED AT 4 MCG/MIN.
[2019-04-05] MEDS ORDERED: NOREPINEPHRINE 4 MG/4 ML VIAL IV ONE (03:48)
--- NOTE | 2019-04-05 04:00 | NUR ---
SUCTIONED. TURNED. ORAL CARE GIVEN. PULSES PALPABLE.
--- NOTE | 2019-04-05 06:00 | NUR ---
MORE ALERT. ATTEMPTS TO PULL OUT ETT. RESTRAINTS IN PLACE. UO ADEQUATE. LEVOPHED AT 4 MCG/MIN. REMAINS IN GUARDED CONDITION.
[2019-04-05] MEDS: ACETYLCYSTEINE 20% 4 ML VIAL (RT) INH SCH ×3 (07:06→20:59)
--- NOTE | 2019-04-05 07:30 | NUR ---
Opening Note Patient report received from endorsing RN via SBAR communication
--- NOTE | 2019-04-05 07:45 | NUR ---
Round Dr. Johnny Howell at bedside assessing patient, no new orders
--- NOTE | 2019-04-05 08:00 | NUR ---
Nursing Note Patient is lying in bed with eyes closed, Patient is intubated, ET tube 8, Lip line 25, Vent settings are AC 16, TV 450, FiO2 90%, PEEP 5. Crackles are present in bilateral lung martínez, patient O2 saturation at 97%. S1, S2 heart sounds present, A-fib on monitor. Peripheral pulses are present and equal bilaterally, +1; Pitting edema +1 present in bilateral upper extremities, +2 on left hand. Bowel sounds are active in all 4 quadrants. 16F mohr catheter is present and draining to gravity, appears to be leaking. Bulb checked and 3cc normal saline added. Weakness present in extremities, patient is on bedrest. Bed is in lowest position, HOB is elevated to 30 degrees.
[2019-04-05 08:05] LABS: BASOPHILS # (AUTO) 0.1 K/uL (0.0-0.2); BASOPHILS % (AUTO) 0.3 % (0.0-2.0); HEMATOCRIT 25.5 % (36-54); LYMPHOCYTES # (AUTO) 0.8 K/uL (1.0-5.5); LYMPHOCYTES % (AUTO) 3.5 % (20.5-51.5); MEAN CORPUSCULAR HEMOGLOBIN 29 pg (27-31); MEAN CORPUSCULAR HGB CONC 32 % (32-36); MEAN CORPUSCULAR VOLUME 93 fL (79.0-98.0); MONOCYTES # (AUTO) 1.9 K/uL (0.0-1.0); NEUTROPHILS # (AUTO) 21.4 K/uL (1.8-7.7); NEUTROPHILS % (AUTO) 88.2 % (40.0-70.0); PLATELET COUNT (AUTO) 70 K/uL (130-430); RED BLOOD CELL COUNT(AUTO) 2.73 MIL/uL (4.2-6.2); RED CELL DISTRIBUTION WIDTH 19.1 % (9.0-15.0); WHITE BLOOD COUNT (AUTO) 24.3 K/uL (4.8-10.8)
--- NOTE | 2019-04-05 08:10 | NUR ---
IV PLACEMENT: # 20 gauge angiocath placed to left ac. Use of asceptic technique. Opsite placed over site. Blood return noted. Flushed with 10 cc of normal saline. No evidence of infiltration noted. Patient tolerated well.
--- NOTE | 2019-04-05 08:20 | NUR ---
Nursing Note Patient provided oral care and repositioned. Patient tolerated well
--- NOTE | 2019-04-05 09:00 | NUR ---
RT NOTES- 100% FIO2 INCREASED FIO2 TO 100% BASED ON ABG RESULT THIS MORNING. RN AWARE.
[2019-04-05 09:38] LABS: ANION GAP 3 (5-15); CALCIUM 7.7 mg/dL (8.4-11.0); CHLORIDE 92 mmol/L (98-107); GLUCOSE 131 mg/dL (70-99); SODIUM SERUM 122 mmol/L (136-145)
[2019-04-05 09:39] LABS: ALANINE AMINOTRANSFERASE 35 U/L (12-78); ALBUMIN 1.3 g/dL (3.4-4.8); ASPARTATE AMINOTRANSFERASE 52 U/L (10-37); CREATININE 1.09 mg/dL (0.55-1.30); TOTAL BILIRUBIN 0.8 mg/dL (0.0-1.0); UREA NITROGEN, BLOOD 37 mg/dL (8-21)
[2019-04-05 10:05] LABS: POTASSIUM 3.2 mmol/L (3.5-5.1)
[2019-04-05] MEDS ORDERED: PREDNISONE 20 MG TABLET PO ONE (10:15)
--- NOTE | 2019-04-05 10:20 | NUR ---
RT NOTES- PEEP 10 INCREASED PEEP TO [id number] PER DR. IBRAHIM. JOSE BUTTS MADE AWARE.
[2019-04-05] MEDS ORDERED: POTASSIUM CHLORIDE 20 MEQ/PKT PACKET PO ONE (10:30)
--- NOTE | 2019-04-05 10:30 | NUR ---
MD Round Dr. Anna at bedside assessing patient, physician entered orders
[2019-04-05] MEDS ORDERED: SUCCINYLCHOLINE CHLORIDE 20 MG/ML(QUELICIN) IVP ONE (11:22)
[2019-04-05] MEDS ORDERED: ETOMIDATE 20 MG/ 10 ML VIAL (AMIDATE) IVP ONE (11:22)
--- NOTE | 2019-04-05 11:30 | NUR ---
MD Call Dr. Grover called regarding patient condition and labs. Sepsis protocol activated, bolus of fluids and lab draw initiated.
--- NOTE | 2019-04-05 11:38 | NUR ---
MD Call Dr. Kulkarni consulted as ordered per Dr. Grover. Physician will be in to assess patient, new orders entered
[2019-04-05] MEDS ORDERED: NACL 0.9% 1,000 ML IV ONE ×2 (11:45→12:45)
--- NOTE | 2019-04-05 11:45 | NUR ---
Nursing Note Patient getting EKG at bedside as prescribed by Dr. Kulkarni
--- NOTE | 2019-04-05 12:25 | NUR ---
Nursing Note Patient getting ECHO at bedside as ordered by Dr. Kulkarni
--- NOTE | 2019-04-05 12:30 | NUR ---
MD Round Dr. Kulkarni at bedside assessing patient, physician entered orders
--- NOTE | 2019-04-05 13:00 | NUR ---
PICC PLACEMENT: PICC inserted by PICC nurse to right upper arm as prescribed by Dr. Anna. Placement verified by x-ray.
[2019-04-05] MEDS ORDERED: METOPROLOL TARTRATE 25 MG TABLET PO ONE (13:15)
[2019-04-05] MEDS: FLUCONAZOLE 400 mg/ NS 200 ML IV SCH (13:44)
[2019-04-05] MEDS: ALBUMIN HUMAN 25% 50 ML IV SCH ×3 (13:49→20:56)
--- NOTE | 2019-04-05 13:50 | NUR ---
Nursing Note 1 L fluid bolus of normal saline and new medications administered as prescribed by Dr. Kulkarni.
--- NOTE | 2019-04-05 15:45 | NUR ---
ALVARENGA CATH: Previous Alvarenga DC due to leakage, 18 FR Alvarenga catheter attempted but unable to get urine return. # 16 FR Alvarenga catheter with 10 cc bulb inserted with use of sterile technique. Bulb inflated with 10 cc sterile water. Immediate return of urine noted. Bedside drainage bag placed below level of bladder. Patient tolerated well
--- NOTE | 2019-04-05 16:15 | NUR ---
Nursing Note Patient had a large BM, linens changed, gown changed, patient given CHG bath. Patient tolerated well
--- NOTE | 2019-04-05 17:50 | NUR ---
MD Call Dr. Kulkarni contacted regarding patient's decreased urine output. No new orders
--- NOTE | 2019-04-05 18:00 | NUR ---
MD Call Dr. Johnny Howell contacted regarding patient condition, new lab orders entered
--- NOTE | 2019-04-05 18:15 | NUR ---
Round Dr. Grover at bedside assessing patient, no new orders
--- NOTE | 2019-04-05 19:06 | NUR ---
Closing Note Patient report given to nightshift RN via SBAR communication
--- NOTE | 2019-04-05 20:00 | NUR ---
LETHARGIC. RESPONDS TO TACTILE AND NOXIOUS STIMULI. OPENS EYES SPONTANEOUSLY AT TIMES. ORALLY INTUBATED. SUCTIONED WITH MOD AMOUNT OF THIN RED-TINGED MUCUS OBTAINED. ORAL CARE GIVEN. OGT CLAMPED. SCD ON RIGHT LEG. MARK PICC LINE DRSG D/I. SR W/ PAC'S. JUNG SOFT WRIST RESTRAINTS ON FOR SAFETY.
[2019-04-05] MEDS: METOPROLOL TARTRATE 25 MG TABLET PO SCH (20:57)
[2019-04-05] MEDS: ENOXAPARIN SODIUM 30 MG/0.3 ML SYRINGE SUBCUT SCH (21:03)
--- NOTE | 2019-04-05 22:00 | NUR ---
DOZES ON AND OFF. SUCTIONED. HS CARE GIVEN.
[2019-04-06] VITALS (34 sets, daily range): BP systolic 102–156
--- NOTE | 2019-04-06 | NUR ---
SLEPT INTERMITTENTLY. SUCTIONED WITH SAME RESULTS. ORAL CARE GIVEN. RESISTIVE TO ORAL CARE. CIRCULATION CHECK DONE. SR W/ PAC'S, HR OCCASIONALLY DIPS IN THE 50'S, UNSUSTAINED.
[2019-04-06] MEDS: IPRATROPIUM/ALBUTEROL SULFATE 3 ML AMPUL.NEB (DUONEB) INH SCH ×4 (01:37→19:50)
--- NOTE | 2019-04-06 02:00 | NUR ---
ASLEEP. NO DISTRESS NOTED. SR W/ PAC'S VS PAT'S.
--- NOTE | 2019-04-06 04:00 | NUR ---
AWAKE. RESISTIVE TO ORAL CARE. BITES ON TOOTHETTES. ARMS WEEPING. SUCTIONED. UO OLIGURIC, IRRIGATED. 1 LARGE BROWN PASTY LBM DEFECATED. CLEANED. LISANDRO-CARE GIVEN. BACK CARE, ALVARENGA CARE DONE. Z-GUARD APPLIED, SKIN CARE DONE. PARTIAL LINEN CHANGE. DOES NOT ASSIST WITH TURNING. ANITA PROC SWELL.
[2019-04-06] MEDS: NACL 0.9% 1,000 ML IV SCH ×3 (04:40→18:10)
--- NOTE | 2019-04-06 06:00 | NUR ---
SUCTIONED AND TURNED Q2 HRS AND PRN. UO OLIGURIC. PULSES PALPABLE. REMAINS IN GUARDED CONDITION.
[2019-04-06] MEDS: PIPERACILLIN/TAZO 3.375/DEX-IS 50 ML IV SCH (06:18)
[2019-04-06 06:39] LABS: ANION GAP 7 (5-15); CALCIUM 7.3 mg/dL (8.4-11.0); CHLORIDE 109 mmol/L (98-107); CREATININE 1.26 mg/dL (0.55-1.30); GLUCOSE 154 mg/dL (70-99); POTASSIUM 4.1 mmol/L (3.5-5.1); SODIUM SERUM 138 mmol/L (136-145); UREA NITROGEN, BLOOD 47 mg/dL (8-21)
--- NOTE | 2019-04-06 06:40 | NUR ---
ATTEMPTED TO CALL DR MONROY X2 FOR LOW URINE OUTPUT, NO RETURN CALL. DR BENSON CALLED. NOTIFIED OF LOW URINE OUTPUT, STATUS , BUN AND CREATININE. ORDERED TO LOWER IVF TO 100CC/HR. IMPLEMENTED.
[2019-04-06 06:42] LABS: HEMATOCRIT 23.2 % (36-54); HEMOGLOBIN 7.2 g/dL (14.0-18.0); LYMPHOCYTES # (AUTO) 0.3 K/uL (1.0-5.5); LYMPHOCYTES % (AUTO) 2.4 % (20.5-51.5); MEAN CORPUSCULAR HEMOGLOBIN 30 pg (27-31); MEAN CORPUSCULAR HGB CONC 31 % (32-36); MEAN CORPUSCULAR VOLUME 96 fL (79.0-98.0); MONOCYTES # (AUTO) 0.6 K/uL (0.0-1.0); MONOCYTES % (AUTO) 4.2 % (1.7-9.3); NEUTROPHILS # (AUTO) 12.6 K/uL (1.8-7.7); NEUTROPHILS % (AUTO) 93.4 % (40.0-70.0); RED BLOOD CELL COUNT(AUTO) 2.44 MIL/uL (4.2-6.2); RED CELL DISTRIBUTION WIDTH 19.5 % (9.0-15.0); WHITE BLOOD COUNT (AUTO) 13.5 K/uL (4.8-10.8)
[2019-04-06] MEDS: ACETYLCYSTEINE 20% 4 ML VIAL (RT) INH SCH ×2 (06:59→19:51)
--- NOTE | 2019-04-06 07:10 | NUR ---
Opening Note Received patient report by endorsing RN via SBAR
--- NOTE | 2019-04-06 07:15 | NUR ---
Opening Note Patient is lying in bed with eyes closed, Patient is intubated and lethargic, ET tube 8, Lip line 25, Vent settings are AC 16, TV 450, FiO2 100%, PEEP 10. Crackles are present in bilateral lung martínez, patient O2 saturation at 99%. S1, S2 heart sounds present, A-fib on monitor. Peripheral pulses are present and equal bilaterally, +1; Pitting edema +1 present in bilateral upper extremities, +2 on right hand. Bowel sounds are active in all 4 quadrants. 16F mohr catheter is present and draining to gravity, appears to be leaking. Weakness present in extremities, patient is on bedrest. Small skin tear noted near IV site on right hand. IV DC, area cleaned, dressing applied, photograph taken. Bed is in lowest position, HOB is elevated to 30 degrees.
--- NOTE | 2019-04-06 08:00 | NUR ---
Nursing Note Patient provided oral care, gowns changed, linens changed due to weeping skin on bilateral forearms. Patient tolerated well
[2019-04-06 08:22] LABS: PLATELET COUNT (AUTO) 53 K/uL (130-430)
--- NOTE | 2019-04-06 09:00 | NUR ---
MD Round Dr. Kulkarni at bedside assessing patient, physician entered orders
[2019-04-06] MEDS: PREDNISONE 20 MG TABLET PO SCH (09:51)
[2019-04-06] MEDS: METOPROLOL TARTRATE 25 MG TABLET PO SCH ×2 (09:52→21:07)
--- NOTE | 2019-04-06 11:00 | NUR ---
MD Round Dr. Anna at bedside assessing patient, physician entered orders
[2019-04-06] MEDS: FLUCONAZOLE 400 mg/ NS 200 ML IV SCH (11:36)
--- NOTE | 2019-04-06 13:30 | NUR ---
MD Jorge Luis Man consulted regarding patient's condition and updated on current status. New orders entered Addendum: 04/06/19 at 1846 by Sincere Guaman RN Time contacted is [phone]
--- NOTE | 2019-04-06 14:00 | NUR ---
MD Call Dr. Grover updated about patient condition, lab orders and consult orders entered
[2019-04-06 15:25] LABS: MEAN CORPUSCULAR HEMOGLOBIN 30 pg (27-31); MONOCYTES # (AUTO) 0.7 K/uL (0.0-1.0); NEUTROPHILS # (AUTO) 17.7 K/uL (1.8-7.7); PLATELET COUNT (AUTO) 59 K/uL (130-430)
[2019-04-06] MEDS ORDERED: NS 250 ML IV ONE (15:30)
[2019-04-06 15:34] LABS: HEMATOCRIT 26.7 % (36-54); RED BLOOD CELL COUNT(AUTO) 2.65 MIL/uL (4.2-6.2)
[2019-04-06 15:35] LABS: BASOPHILS % (AUTO) 0.1 % (0.0-2.0); LYMPHOCYTES % (AUTO) 3.6 % (20.5-51.5); MEAN CORPUSCULAR HGB CONC 30 % (32-36); MEAN CORPUSCULAR VOLUME 101 fL (79.0-98.0); MONOCYTES % (AUTO) 3.5 % (1.7-9.3); NEUTROPHILS % (AUTO) 92.8 % (40.0-70.0); RED CELL DISTRIBUTION WIDTH 20.5 % (9.0-15.0)
[2019-04-06 15:36] LABS: LYMPHOCYTES # (AUTO) 0.7 K/uL (1.0-5.5)
[2019-04-06 16:24] LABS: ANION GAP 10 (5-15); CALCIUM 7.5 mg/dL (8.4-11.0); CHLORIDE 111 mmol/L (98-107); CREATININE 1.19 mg/dL (0.55-1.30); GLUCOSE 137 mg/dL (70-99); POTASSIUM 4.1 mmol/L (3.5-5.1); SODIUM SERUM 143 mmol/L (136-145); UREA NITROGEN, BLOOD 54 mg/dL (8-21)
[2019-04-06] MEDS: LORazepam 2 MG/ML VIAL IVP PRN (16:31)
--- NOTE | 2019-04-06 16:40 | NUR ---
RT NOTES Called to bedside, RN reported noise coming from ETT, found ETT at 22-23cm, per RN, noise started after pt was turned. Pt's saturation high 90s. No distress noted. Pt was assessed, with RN, ETT cuff was not visualized, no indication that ETT was out, cuff was deflated and was pushed down to 25cm. Secured. Bilateral b/s and chest rise noted. Good tidal volume. Saturation high 90s. No respiratory distress noted. No restrictions during ETT sxn. CXR to be done to confirm ETT position.
--- NOTE | 2019-04-06 16:45 | NUR ---
Nursing Note Patient had large BM, patient cleaned, gowns changed, linens changed. Noise heard from ETT and RT notified. ETT at 23cm, changed from previous 25cm. No distress present, O2 saturation in the 90s. No ETT cuff visualized by RT flue tile press operator, tube advanced to 25cm by RT, chest rise equal bilaterally, lung sounds present bilaterally. Chest x ray ordered to confirm placement. X-ray indicates ETT is 3.5cm above nancy.
[2019-04-06 17:33] LABS: BLOOD, URINE 3+ (NEGATIVE); CLARITY/URINE SL CLOUDY (CLEAR); COLOR,URINE BROWN (YELLOW); GLUCOSE,URINE NEGATIVE (NEGATIVE); KETONES,URINE TRACE (NEGATIVE); LEUKOCYTE ESTERASE ,URINE TRACE (NEGATIVE); PROTEIN URINE 1+ (NEGATIVE)
[2019-04-06 17:46] LABS: BILIRUBIN,URINE NEGATIVE (NEGATIVE); NITRITE, URINE NEGATIVE (NEGATIVE)
[2019-04-06 17:48] LABS: BACTERIA,URINE MODERATE /HPF (None Seen); MUCUS,URINE None Seen /LPF (None Seen); RBC,URINE >100 /HPF (0-3)
--- NOTE | 2019-04-06 18:00 | NUR ---
Nursing Note Patient repositioned in bed, Patient's tubefeeding started at 40ml/hr, patient tolerated well
--- NOTE | 2019-04-06 19:05 | NUR ---
Closing Note Patient report given via SBAR to nightshift RN
--- NOTE | 2019-04-06 20:00 | NUR ---
ORALLY INTUBATED. RESPONDS TO NOXIOUS STIMULI. BREATH SOUNDS WITH ADVENTITIOUS SOUNDS. SUCTIONED WITH MOD AMOUNT OF THIN PINK TINGED MUCUS OBTAINED. ORAL CARE GIVEN. BOWEL SOUNDS (+). OGT FEEDING WITH NEPRO AT 40CC/HR. RESIDUAL CHECK 0. PULSES PALPABLE. SKIN W/D. COLOR SATISFACTORY. HOB UP TO COMFORT. SIDE RAILS UP. CALL LIGHTS WITHIN REACH. SR VS AFIB. MARK PICC LINE DRSG D/I.
[2019-04-06] MEDS: FAMOTIDINE 20 MG TABLET PO SCH (21:07)
[2019-04-06] MEDS: ENOXAPARIN SODIUM 30 MG/0.3 ML SYRINGE SUBCUT SCH (21:08)
--- NOTE | 2019-04-06 22:00 | NUR ---
HS CARE. TURNED. PULSES PALPABLE. OGT FLUSHED WITH 100CC H2O.
[2019-04-07] VITALS (34 sets, daily range): BP systolic 106–159
--- NOTE | 2019-04-07 | NUR ---
DOZES ON AND OFF. CIRCULATION CHECK DONE. ARMS WEEPING. ORAL CARE GIVEN. RESIDUAL CHECK 0. REPOSITIONED.
[2019-04-07 00:28] LABS: URINE SODIUM, RANDOM 11 mmol/L (40-220)
[2019-04-07] MEDS: IPRATROPIUM/ALBUTEROL SULFATE 3 ML AMPUL.NEB (DUONEB) INH SCH ×4 (01:47→19:32)
--- NOTE | 2019-04-07 02:00 | NUR ---
ASLEEP. SUCTIONED. TURNED.
--- NOTE | 2019-04-07 04:00 | NUR ---
SLEPT INTERMITTENTLY. RESIDUAL CHECK 30CC. CHG BATH GIVEN. ORAL CARE, ALVARENGA CARE BACK CARE, Z-GUARD APPLIED, SKIN CARE RENDERED. PARTIAL LINEN CHANGE. DOES NOT ASSIST WITH TURNING. ANITA PROC WELL.
[2019-04-07] MEDS: NACL 0.9% 1,000 ML IV SCH ×2 (04:06→15:13)
[2019-04-07 05:50] LABS: BASOPHILS # (AUTO) 0.1 K/uL (0.0-0.2); BASOPHILS % (AUTO) 0.4 % (0.0-2.0); EOSINOPHILS % (AUTO) 0.1 % (0.0-4.0); HEMATOCRIT 24.1 % (36-54); HEMOGLOBIN 7.4 g/dL (14.0-18.0); LYMPHOCYTES # (AUTO) 0.4 K/uL (1.0-5.5); LYMPHOCYTES % (AUTO) 2.2 % (20.5-51.5); MEAN CORPUSCULAR HEMOGLOBIN 30 pg (27-31); MEAN CORPUSCULAR HGB CONC 31 % (32-36); MEAN CORPUSCULAR VOLUME 97 fL (79.0-98.0); MONOCYTES # (AUTO) 1.1 K/uL (0.0-1.0); NEUTROPHILS # (AUTO) 16.4 K/uL (1.8-7.7); PLATELET COUNT (AUTO) 52 K/uL (130-430); RED BLOOD CELL COUNT(AUTO) 2.49 MIL/uL (4.2-6.2); RED CELL DISTRIBUTION WIDTH 20.1 % (9.0-15.0)
--- NOTE | 2019-04-07 06:00 | NUR ---
SUCTIONED AND TURNED Q2 HRS AND PRN. UO OLIGURIC. OGT FLUSHED WITH 100CC H2O. PULSES PALPABLE. REMAINS IN GUARDED CONDITION.
[2019-04-07 06:13] LABS: TOTAL IRON BIND. CAPACITY 97 ug/dL (250-450)
--- NOTE | 2019-04-07 07:10 | NUR ---
Opening Note Patient report received from nightshift RN via SBAR
--- NOTE | 2019-04-07 07:50 | NUR ---
Nursing Note Patient lying in bed with eyes closed, HOB elevated to 30 degrees. Patient is intubated and lethargic with A&O1, ET tube 8, Lip line 25, Vent settings are AC 16, TV 450, FiO2 70%, PEEP 10. Crackles are present in bilateral lower lung martínez, patient's O2 saturation at 98%. S1, S2 heart sounds present, sinus rhythm on monitor. Peripheral pulses are present and equal bilaterally, +1; Pitting edema +1 present in bilateral upper extremities, +2 on right hand., weeping skin in bilateral upper extremities. PICC present on right upper arm running NS@100mL/hr. 20G catheter on left AC, flushes easily, saline locked. Bowel sounds are active in all 4 quadrants. 16F mohr catheter is present and draining to gravity, padma urine present. Weakness in extremities, patient on bedrest. Bed is in lowest position, HOB is elevated to 30 degrees, call light is within reach.
[2019-04-07 07:59] LABS: ALANINE AMINOTRANSFERASE 28 U/L (12-78); ALBUMIN 1.7 g/dL (3.4-4.8); ANION GAP 9 (5-15); ASPARTATE AMINOTRANSFERASE 59 U/L (10-37); CALCIUM 7.4 mg/dL (8.4-11.0); CHLORIDE 112 mmol/L (98-107); CREATININE 1.14 mg/dL (0.55-1.30); GLUCOSE 201 mg/dL (70-99); POTASSIUM 4.6 mmol/L (3.5-5.1); SODIUM SERUM 143 mmol/L (136-145); TOTAL BILIRUBIN 0.5 mg/dL (0.0-1.0); UREA NITROGEN, BLOOD 62 mg/dL (8-21)
[2019-04-07] MEDS: ACETYLCYSTEINE 20% 4 ML VIAL (RT) INH SCH ×2 (08:02→19:33)
--- NOTE | 2019-04-07 08:30 | NUR ---
Round Dr. Kulkarni at bedside assessing patient, no new orders
[2019-04-07] MEDS: FAMOTIDINE 20 MG TABLET PO SCH ×2 (08:58→21:06)
[2019-04-07] MEDS: METOPROLOL TARTRATE 25 MG TABLET PO SCH ×2 (08:58→21:05)
[2019-04-07] MEDS: PREDNISONE 20 MG TABLET PO SCH (08:58)
[2019-04-07] MEDS ORDERED: CEFEPIME 1 GM in D5W 50 ML IV ONE (09:30)
[2019-04-07 09:35] LABS: NEUTROPHILS % (AUTO) 91.3 % (40.0-70.0)
--- NOTE | 2019-04-07 09:45 | NUR ---
Round Dr. Smith at bedside assessing patient, physician entered orders
--- NOTE | 2019-04-07 10:55 | NUR ---
Round Dr. Cheko Howell at bedside assessing patient, no new orders
--- NOTE | 2019-04-07 12:00 | NUR ---
Nursing Note Patient given oral care and repositioned in bed, patient tolerated well
[2019-04-07] MEDS: FLUCONAZOLE 400 mg/ NS 200 ML IV SCH (12:35)
--- NOTE | 2019-04-07 13:15 | NUR ---
Round Dr. Grover at bedside assessing patient, no new orders
--- NOTE | 2019-04-07 13:17 | NUR ---
Nutrition F/U RD reviewed pt's current EMR record including diet Hx, physician notes, nursing notes, pertinent labs/meds/procedures, care trends, and care activity. Admission Dx: White out pneumonia PMH: HLD, HTN, recent Sx per physician notes Current Nutrition Support: Nepro at 40ml/hr, FWF 100ml TID via NGT x 1 day Subjective Info: Pt seen sleeping in bed earlier today during RD visit. +intubated. Per RN report, pt has been tolerating EN regimen well w/ only 10cc residual this morning at 7:30am. Current EN regimen provides: 1728 kcal, 78 gm protein and 998ml free water daily which meets <70% of estimated protein needs. Pt is not yet meeting adequate protein and may benefit from Vital AF 1.2. Estimated Energy Expenditure (kcals/day) 1738 kcal/day (PSU 2009 for critical illness on vent) Estimated Protein Required (g/day) 114-152 gm/day (1.5-2 gm/kg Adj IBW for sepsis) Estimated Fluid Required (l/day) 2.4-2.9 L/day (25-30 ml/kg CBW for geriatric maintenance) Problem/Etiology/Signs/Symptoms Increased nutritional needs related to metabolic demands as evidenced by estimated nutritional requirements for sepsis. *ongoing Expected Outcomes/Goals - Monitor EN tolerance and intakes w/ goal of pt meeting 80-100% of estimated nutritional needs, labs trending WNL, normal GI function, and skin integrity/wt maintenance Dietitian Recommendations * Recommend Vital AF 1.2 at 60ml/hr (goal rate) via NGT Provides: 1728 kcal, 108 gm protein and 1168ml free water from EN formula only. Meets: 99% of estimated calorie needs and 95% of upper end of estimated protein needs. Follow Up High Risk: F/U in 2-3 days
--- NOTE | 2019-04-07 13:27 | NUR ---
Dietitian Recommendations * Recommend Vital AF 1.2 at 60ml/hr (goal rate) via NGT Provides: 1728 kcal, 108 gm protein and 1168ml free water from EN formula only. Meets: 99% of estimated calorie needs and 95% of upper end of estimated protein needs. Please see Nutrition F/U note for details. HALFWAY, RD
--- NOTE | 2019-04-07 14:40 | NUR ---
Round Dr. Man at bedside assessing patient, physician entered orders
[2019-04-07] MEDS: ALBUMIN HUMAN 25% 50 ML IV SCH ×2 (15:13→21:04)
--- NOTE | 2019-04-07 16:00 | NUR ---
Nursing Note Stool sample for occult blood 1 of 3 collected and sent to lab.
--- NOTE | 2019-04-07 17:00 | NUR ---
Nursing Note Wound care performed, patient repositioned, patient tolerated well with no distress
--- NOTE | 2019-04-07 19:01 | NUR ---
Closing Note Patient report given to nightshift RN via SBAR communication
--- NOTE | 2019-04-07 20:00 | NUR ---
SLIGHTLY LETHARGIC. RESPONDS TO NOXIOUS AND PAINFUL STIMULI. ORALLY INTUBATED. SUCTIONED ETT WITH MOD AMOUNT OF RED-TINGED THIN MUCUS OBTAINED. ORAL CARE RENDERED. OGT FEEDING WITH VITAL AF 1.2 AT 40CC/HR. RESIDUAL CHECK 0. SOFT WRIST RESTRAINTS ON FOR SAFETY.ALVARENGA CATH PATENT DRAINING CLOUDY YADI URINE WITH SEDIMENTS TO GRAVITY. PULSES PALPABLE. ARMS WEEPING. SR W/PAC'S AND OCC. PVC'S.
[2019-04-07] MEDS: ENOXAPARIN SODIUM 30 MG/0.3 ML SYRINGE SUBCUT SCH (21:07)
[2019-04-07] MEDS: CEFEPIME 1 GM in D5W 50 ML IV SCH (21:08)
--- NOTE | 2019-04-07 22:00 | NUR ---
HS CARE GIVEN. SUCTIONED. TURNED. CIRCULATION CHECK DONE. OGT FLUSHED WITH 100CC H2O.
[2019-04-08] VITALS (29 sets, daily range): BP systolic 104–162
--- NOTE | 2019-04-08 | NUR ---
SOMNOLENT. SUCTIONED. ORAL CARE GIVEN. PULSES PALPABLE. RESIDUAL CHECK 0.
[2019-04-08] MEDS: IPRATROPIUM/ALBUTEROL SULFATE 3 ML AMPUL.NEB (DUONEB) INH SCH ×4 (01:15→19:38)
--- NOTE | 2019-04-08 02:00 | NUR ---
ASLEEP. SUCTIONED. TURNED.
[2019-04-08] MEDS: ALBUMIN HUMAN 25% 50 ML IV SCH ×3 (03:04→20:21)
[2019-04-08] MEDS: NACL 0.9% 1,000 ML IV SCH ×3 (03:05→20:22)
--- NOTE | 2019-04-08 04:00 | NUR ---
ORAL CARE DONE. PULSES PALPABLE. SUCTIONED. 1 MOD BROWN LBM. CLEANED. LISANDRO-CARE DONE. ALVARENGA CARE, BACK CARE, Z-GUARD APPLIED TO PERINEUM, SKIN CARE RENDERED. PARTIAL LINEN CHANGE DONE. DOES NOT ASSIST WITH TURNING. ANITA PROC WELL.
--- NOTE | 2019-04-08 06:00 | NUR ---
SUCTIONED AND TURNED Q2 HRS AND PRN. OGT FLUSHED WITH 100CC H2O. CIRCULATION CHECKED Q2 HRS. UO ADEQUATE. REMAINS IN GUARDED CONDITION.
[2019-04-08 06:04] LABS: BASOPHILS # (AUTO) 0.2 K/uL (0.0-0.2); BASOPHILS % (AUTO) 1.2 % (0.0-2.0); EOSINOPHILS # (AUTO) 0.1 K/uL (0.0-0.4); EOSINOPHILS % (AUTO) 0.6 % (0.0-4.0); LYMPHOCYTES # (AUTO) 0.8 K/uL (1.0-5.5); LYMPHOCYTES % (AUTO) 4.3 % (20.5-51.5); MEAN CORPUSCULAR HEMOGLOBIN 31 pg (27-31); MEAN CORPUSCULAR HGB CONC 31 % (32-36); MEAN CORPUSCULAR VOLUME 99 fL (79.0-98.0); MONOCYTES % (AUTO) 5.4 % (1.7-9.3); NEUTROPHILS % (AUTO) 88.5 % (40.0-70.0); PLATELET COUNT (AUTO) 64 K/uL (130-430); RED BLOOD CELL COUNT(AUTO) 2.21 MIL/uL (4.2-6.2); RED CELL DISTRIBUTION WIDTH 20.4 % (9.0-15.0); WHITE BLOOD COUNT (AUTO) 19.3 K/uL (4.8-10.8)
--- NOTE | 2019-04-08 06:25 | NUR ---
DR MONROY HERE, NOTIFIED OF CONDITION, H/H OF 6., AND UPDATED ON STATUS. ORDERED TO TRANSFUSE 1 UNIT PRBC. TO BE IMPLEMENTED.
--- NOTE | 2019-04-08 07:05 | NUR ---
Opening Note Patient received lethargic in bed connected to baggageman with NSR. Patient intubated at this time with settings of AC 16, tidal volume 450, FiO2 55%, and PEEP 10, breathing evenly and unlabored. Patient in no signs of distress at this time. Patient has a MARK PICC receiving fluids. Patient has a mohr catheter draining urine. Patient also has an OGT in place receiving tubefeeding. Safety precautions in place. Restraints in place.
--- NOTE | 2019-04-08 08:00 | NUR ---
MD Rounds Dr. Kulkarni at bedside for examination.
[2019-04-08] MEDS: METOPROLOL TARTRATE 25 MG TABLET PO SCH ×2 (09:00→20:22)
[2019-04-08] MEDS: PREDNISONE 20 MG TABLET PO SCH (09:00)
[2019-04-08] MEDS: CEFEPIME 1 GM in D5W 50 ML IV SCH ×2 (09:00→20:21)
[2019-04-08] MEDS: FAMOTIDINE 20 MG TABLET PO SCH ×2 (09:00→20:22)
--- NOTE | 2019-04-08 09:20 | NUR ---
Received confirmation from Anna (social work job titles) that friend Sanket Henderson can consent for patient.
--- NOTE | 2019-04-08 10:20 | NUR ---
MD Rounds Dr. Smith at bedside for examination. New orders received.
[2019-04-08 10:59] LABS: HEMOGLOBIN 6.9 g/dL (14.0-18.0)
[2019-04-08 11:25] LABS: ANION GAP 9 (5-15); CHLORIDE 113 mmol/L (98-107); GLUCOSE 215 mg/dL (70-99); POTASSIUM 4.3 mmol/L (3.5-5.1); SODIUM SERUM 145 mmol/L (136-145)
[2019-04-08 11:26] LABS: ALANINE AMINOTRANSFERASE 32 U/L (12-78); ALBUMIN 2.3 g/dL (3.4-4.8); ASPARTATE AMINOTRANSFERASE 52 U/L (10-37); CALCIUM 7.2 mg/dL (8.4-11.0); CREATININE 1.11 mg/dL (0.55-1.30); PHOSPHORUS 2.8 mg/dL (2.7-4.5); TOTAL BILIRUBIN 0.4 mg/dL (0.0-1.0); UREA NITROGEN, BLOOD 68 mg/dL (8-21)
[2019-04-08] MEDS ORDERED: COMMUNICATION ORDER XX ONE (11:30)
[2019-04-08] MEDS: FLUCONAZOLE 400 mg/ NS 200 ML IV SCH (11:58)
--- NOTE | 2019-04-08 12:00 | NUR ---
RN Rounds Patient resting in bed at this time. Patient in no signs of distress. Safety precautions enforced, call light within reach.
[2019-04-08] MEDS: ACETYLCYSTEINE 20% 4 ML VIAL (RT) INH SCH ×2 (14:07→19:39)
--- NOTE | 2019-04-08 14:20 | NUR ---
Blood transfusion Patient receiving 1 unit PRBC as ordered by MD. Patient tolerating transfusion well. No signs of anaphylactic reaction noted.
--- NOTE | 2019-04-08 14:50 | NUR ---
MD Rounds Dr. Man at bedside for examination. New orders received.
[2019-04-08] MEDS ORDERED: FUROSEMIDE 40 MG/4 ML VIAL IVP ONE (15:15)
[2019-04-08] MEDS ORDERED: ALBUMIN HUMAN 25% 50 ML IV ONE (15:32)
--- NOTE | 2019-04-08 16:00 | NUR ---
RN Rounds Patient resting in bed at this time. Patient in no signs of distress. Call light in reach. Safety precautions in place.
--- NOTE | 2019-04-08 19:19 | NUR ---
Closing Notes Patient endorsed to warehouse shift supervisor RN using SBAR format. Patient in no signs of distress at this time. Safety precautions enforced.
--- NOTE | 2019-04-08 19:35 | NUR ---
PATIENT RECEIVED: PATIENT IS SUPINE IN BED AND STABLE WITH HOB IN UPRIGHT POSITION. NO S/S OF RESPIRATORY DISTRESS NOTED.PATIENT VERBALIZES NO PAIN. PATIENT UNSUCCESSFULLY DEMONSTRATES USAGE OF CALL LIGHT AT THIS TIME. FALL, SAFETY, ASPIRATION, AND RESPIRATORY PRECAUTIONS WILL BE IN PLACE THROUGHOUT THE SHIFT. PLAN OF CARE IS DISCUSSED WITH PATIENT AT THIS TIME. BED IS LOCKED, ALARMED, AND AT THE LOWEST POSITION. WILL CONTINUE TO MONITOR.
[2019-04-08 21:22] LABS: FERRITIN 1193 ng/mL (30-400)
[2019-04-08 21:25] LABS: CREATININE, URINE 135.2 mg/dL; MICROALBUMIN URINE RANDOM 184.9 ug/ml (NOT ESTABLISHED)
[2019-04-09] VITALS (35 sets, daily range): BP systolic 107–169
[2019-04-09] MEDS: IPRATROPIUM/ALBUTEROL SULFATE 3 ML AMPUL.NEB (DUONEB) INH SCH ×4 (00:26→20:25)
--- NOTE | 2019-04-09 00:30 | NUR ---
Oral Care and Suction Patient received oral care and was turned and repositioned.
[2019-04-09] MEDS: ALBUMIN HUMAN 25% 50 ML IV SCH ×2 (03:34→08:26)
--- NOTE | 2019-04-09 04:30 | NUR ---
G Bath Patient received a bed bath, suction, change of linens, and was repositioned. Will continue to monitor.
[2019-04-09] MEDS: NACL 0.9% 1,000 ML IV SCH ×3 (05:52→20:20)
[2019-04-09 06:10] LABS: LYMPHOCYTES # (AUTO) 0.2 K/uL (1.0-5.5); LYMPHOCYTES % (AUTO) 1.5 % (20.5-51.5); MEAN CORPUSCULAR HEMOGLOBIN 30 pg (27-31); MEAN CORPUSCULAR HGB CONC 30 % (32-36); MEAN CORPUSCULAR VOLUME 98 fL (79.0-98.0); MONOCYTES # (AUTO) 1.2 K/uL (0.0-1.0); MONOCYTES % (AUTO) 8.2 % (1.7-9.3); NEUTROPHILS % (AUTO) 90.3 % (40.0-70.0); RED BLOOD CELL COUNT(AUTO) 2.15 MIL/uL (4.2-6.2); RED CELL DISTRIBUTION WIDTH 19.2 % (9.0-15.0)
[2019-04-09 06:33] LABS: HEMOGLOBIN 6.4 g/dL (14.0-18.0); PLATELET COUNT (AUTO) 22 K/uL (130-430)
--- NOTE | 2019-04-09 06:45 | NUR ---
DR MONROY NOTIFIED OF H/H 6.06/16 AND PLT 87127, NEW ORDERS RECEIVED AND IMPLEMENTED.
--- NOTE | 2019-04-09 06:47 | NUR ---
CONSULTATION PAGED/CALLED: DR. BECKHAM Reason for Consultation: LOW H/H, LOW PLT Person Who was Notified: MARIE Consulting Physician: DR. BECKHAM [employer] Supervisor Specialty: HEMATOLOGY Ordering Physician: DR. MONROY
--- NOTE | 2019-04-09 07:05 | NUR ---
Opening Note Patient received lethargic, arousable to verbal stimuli. Patient connected to playground monitor with NSR. Patient intubated with settings of AC 24, tidal volume 450, FiO2 55%, and PEEP 10 breathing evenly and unlabored, no signs of distress noted. Patient has a MARK PICC with c/d/i dressing receiving fluids. Patient has an OGT in place receiving tubefeeding. Patient has a mohr catheter in place draining yellow urine. Restraints in place. Safety precautions enforced, call light within reach.
--- NOTE | 2019-04-09 07:25 | NUR ---
MD Rounds Dr. Kulkarni at bedside for examination. No new orders received.
[2019-04-09] MEDS: ACETYLCYSTEINE 20% 4 ML VIAL (RT) INH SCH ×3 (07:50→20:27)
--- NOTE | 2019-04-09 08:05 | NUR ---
MD Rounds Dr. Deepika Howell at bedside for examination. No new orders received.
[2019-04-09] MEDS: METOPROLOL TARTRATE 25 MG TABLET PO SCH ×2 (08:25→20:19)
[2019-04-09] MEDS: FAMOTIDINE 20 MG TABLET PO SCH ×2 (08:25→20:19)
[2019-04-09] MEDS: PREDNISONE 20 MG TABLET PO SCH (08:25)
[2019-04-09] MEDS: CEFEPIME 1 GM in D5W 50 ML IV SCH ×2 (08:26→20:19)
[2019-04-09 08:35] LABS: ANION GAP 11 (5-15); CALCIUM 7.3 mg/dL (8.4-11.0); CHLORIDE 116 mmol/L (98-107); CREATININE 0.95 mg/dL (0.55-1.30); GLUCOSE 258 mg/dL (70-99); POTASSIUM 4.2 mmol/L (3.5-5.1); SODIUM SERUM 148 mmol/L (136-145); UREA NITROGEN, BLOOD 75 mg/dL (8-21)
--- NOTE | 2019-04-09 09:55 | NUR ---
MD Rounds Dr. Smith at bedside for examination. New orders received.
--- NOTE | 2019-04-09 09:55 | NUR ---
RT NOTES Per Dr Smith's order FIO2 to 65% per ABG result. Done by RT Lopez
[2019-04-09] MEDS ORDERED: PHYTONADIONE 10 MG in NS 50 ML IV ONE (10:45)
[2019-04-09 11:19] LABS: INR 1.7 (0.80-1.20); PROTHROMBIN TIME 17.2 SECS (9.5-12.5)
[2019-04-09 11:23] LABS: WHITE BLOOD COUNT (AUTO) 14.4 K/uL (4.8-10.8)
--- NOTE | 2019-04-09 11:29 | NUR ---
Blood transfusion 1 unit PRBC being transfused at this time. No signs of distress noted. Patient tolerating well.
[2019-04-09] MEDS: FLUCONAZOLE 400 mg/ NS 200 ML IV SCH (11:43)
--- NOTE | 2019-04-09 13:35 | NUR ---
MD Rounds Dr. Man at bedside for examination. New orders received.
[2019-04-09] MEDS ORDERED: FUROSEMIDE 40 MG/4 ML VIAL IVP ONE (13:45)
--- NOTE | 2019-04-09 14:10 | NUR ---
Blood Transfusion Second 1 unit of PRBC being transfused at this time. Patient tolerating well.
--- NOTE | 2019-04-09 16:20 | NUR ---
Platelets Transfusion 1 unit Platelets transfusing at this time. Patient tolerating well. No signs of distress noted.
[2019-04-09] MEDS ORDERED: OCTREOTIDE ACETATE 50 MCG/ML AMP IVP ONE (16:45)
[2019-04-09] MEDS ORDERED: PANTOPRAZOLE SODIUM 40 MG/VIAL (PROTONIX) IVP ONE (16:45)
[2019-04-09] MEDS: PANTOPRAZOLE SODIUM 40 MG in NS 50 ML IV SCH ×2 (17:53→20:50)
[2019-04-09] MEDS: OCTREOTIDE ACETATE 1,250 MCG in NS 243.75 ML IV SCH (17:54)
--- NOTE | 2019-04-09 19:35 | NUR ---
POST TRANSFUSION: PATIENT TOLERATED WELL, NO S/S OF ADVERSE REACTION. WILL CONTINUE TO MONITOR.
--- NOTE | 2019-04-09 19:35 | NUR ---
Closing Notes Patient endorsed to afterschool babysitter RN using SBAR format. Patient in no signs of distress at this time.
--- NOTE | 2019-04-09 20:00 | NUR ---
Opening Note: Patient received from day shift via SBAR. Patient is supine in bed, with the HOB in the upright position. Will continue to monitor.
[2019-04-09] MEDS: ATORVASTATIN 20 MG TABLET PO SCH (20:20)
[2019-04-09 21:07] LABS: BASOPHILS % (AUTO) 0.1 % (0.0-2.0); EOSINOPHILS % (AUTO) 0.1 % (0.0-4.0); HEMATOCRIT 26.1 % (36-54); HEMOGLOBIN 8.2 g/dL (14.0-18.0); LYMPHOCYTES # (AUTO) 0.3 K/uL (1.0-5.5); LYMPHOCYTES % (AUTO) 1.9 % (20.5-51.5); MEAN CORPUSCULAR HEMOGLOBIN 30 pg (27-31); MEAN CORPUSCULAR HGB CONC 31 % (32-36); MEAN CORPUSCULAR VOLUME 94 fL (79.0-98.0); MONOCYTES # (AUTO) 0.5 K/uL (0.0-1.0); MONOCYTES % (AUTO) 3.2 % (1.7-9.3); NEUTROPHILS # (AUTO) 14.8 K/uL (1.8-7.7); NEUTROPHILS % (AUTO) 94.7 % (40.0-70.0); PLATELET COUNT (AUTO) 64 K/uL (130-430); RED BLOOD CELL COUNT(AUTO) 2.77 MIL/uL (4.2-6.2); RED CELL DISTRIBUTION WIDTH 17.2 % (9.0-15.0); WHITE BLOOD COUNT (AUTO) 15.6 K/uL (4.8-10.8)
--- NOTE | 2019-04-09 23:30 | NUR ---
CHG BATH: PATIENT BATHED WITH CHG, LINENS CHANGED, CHUX REPLACED, RESTRAINTS REPLACED AND PROTECTED WITH HAND TOWELS. PATIENT IS DRY, WARM AND CLEAN WITH THE HOB IN THE UPRIGHT POSITION. WILL CONTINUE TO MONITOR.
[2019-04-10] VITALS (35 sets, daily range): BP systolic 103–176
[2019-04-10] MEDS: IPRATROPIUM/ALBUTEROL SULFATE 3 ML AMPUL.NEB (DUONEB) INH SCH ×4 (02:09→20:18)
[2019-04-10] MEDS: PANTOPRAZOLE SODIUM 40 MG in NS 50 ML IV SCH ×5 (03:49→21:09)
[2019-04-10 05:44] LABS: BASOPHILS # (AUTO) 0.1 K/uL (0.0-0.2); BASOPHILS % (AUTO) 0.3 % (0.0-2.0); HEMATOCRIT 26.9 % (36-54); HEMOGLOBIN 8.3 g/dL (14.0-18.0); LYMPHOCYTES # (AUTO) 0.5 K/uL (1.0-5.5); LYMPHOCYTES % (AUTO) 2.4 % (20.5-51.5); MEAN CORPUSCULAR HEMOGLOBIN 30 pg (27-31); MEAN CORPUSCULAR HGB CONC 31 % (32-36); MEAN CORPUSCULAR VOLUME 97 fL (79.0-98.0); MONOCYTES # (AUTO) 1.6 K/uL (0.0-1.0); MONOCYTES % (AUTO) 7.6 % (1.7-9.3); NEUTROPHILS # (AUTO) 18.8 K/uL (1.8-7.7); PLATELET COUNT (AUTO) 50 K/uL (130-430); RED BLOOD CELL COUNT(AUTO) 2.77 MIL/uL (4.2-6.2); RED CELL DISTRIBUTION WIDTH 18.4 % (9.0-15.0); WHITE BLOOD COUNT (AUTO) 20.9 K/uL (4.8-10.8)
[2019-04-10 06:16] LABS: ALANINE AMINOTRANSFERASE 24 U/L (12-78); ALBUMIN 2.1 g/dL (3.4-4.8); ANION GAP 8 (5-15); ASPARTATE AMINOTRANSFERASE 31 U/L (10-37); CALCIUM 7.5 mg/dL (8.4-11.0); CREATININE 1.07 mg/dL (0.55-1.30); GLUCOSE 233 mg/dL (70-99); TOTAL BILIRUBIN 0.7 mg/dL (0.0-1.0); UREA NITROGEN, BLOOD 69 mg/dL (8-21)
[2019-04-10 06:22] LABS: INR 1.8 (0.80-1.20); PROTHROMBIN TIME 18.1 SECS (9.5-12.5)
[2019-04-10] MEDS: NACL 0.9% 1,000 ML IV SCH (06:25)
[2019-04-10 06:27] LABS: CHLORIDE 117 mmol/L (98-107); POTASSIUM 4.3 mmol/L (3.5-5.1); SODIUM SERUM 144 mmol/L (136-145)
--- NOTE | 2019-04-10 07:10 | NUR ---
CLOSING NOTE: PLAN OF CARE ENDORSED TO DAY SHIFT RN. PATIENT IN BED WITH HOB UPRIGHT, SAFETY ROUNDS COMPLETED.
--- NOTE | 2019-04-10 07:20 | NUR ---
Opening Note Patient received resting in bed connected to rn cardiac rehab. Patient intubated at this time breathing evenly and unlabored, no signs of distress noted. Patient has a MARK PICC line receiving fluids. Patient has an OGT in place clamped at this time. Patient also has a mohr catheter in place draining urine. Restraints on. Safety precautions enforced.
[2019-04-10] MEDS: ACETYLCYSTEINE 20% 4 ML VIAL (RT) INH SCH ×3 (08:14→20:22)
[2019-04-10 08:27] LABS: NEUTROPHILS % (AUTO) 89.7 % (40.0-70.0)
[2019-04-10] MEDS: CEFEPIME 1 GM in D5W 50 ML IV SCH ×2 (08:32→21:08)
[2019-04-10] MEDS: ASPIRIN 81 MG TABLET(ECOTRIN) PO SCH (09:00)
[2019-04-10] MEDS: PREDNISONE 20 MG TABLET PO SCH (09:00)
[2019-04-10] MEDS: METOPROLOL TARTRATE 25 MG TABLET PO SCH ×3 (09:00→21:10)
[2019-04-10] MEDS: ISOSORBIDE MONONITRATE 30 MG TAB.ER.24H PO SCH (09:00)
[2019-04-10] MEDS ORDERED: PANTOPRAZOLE SODIUM 40 MG TAB PO SCH (09:00)
[2019-04-10] MEDS: FAMOTIDINE 20 MG TABLET PO SCH ×2 (09:00→21:09)
[2019-04-10] MEDS: LISINOPRIL 20 MG TABLET PO SCH (09:00)
--- NOTE | 2019-04-10 10:00 | NUR ---
MD Rounds Dr. Kulkarni at bedside for examination. No new orders received.
--- NOTE | 2019-04-10 10:30 | NUR ---
MD Rounds Dr. Duval at bedside for examination. New orders received.
--- NOTE | 2019-04-10 11:45 | NUR ---
Consent Spoke with Paulo from case management and received confirmation that friend, Sanket Henderson, is able to consent for patient per policy. Per Paulo, to refer back to [employer]TE [employer] notes for more information.
--- NOTE | 2019-04-10 12:00 | NUR ---
RN Rounds Patient with eyes closed resting at this time. Patient in no signs of distress.
--- NOTE | 2019-04-10 12:15 | NUR ---
Patient consent Patient is alert and oriented when spoken to by Ethiopian speaking RN. According to Melisa GARCIA from [facility], patient answered all questions appropriately. Melisa RN briefly informed patient about EGD procedure and patient agreed by nodding head "yes." Patient informed that doctor will speak to him regarding procedure.
[2019-04-10] MEDS: FLUCONAZOLE 400 mg/ NS 200 ML IV SCH (12:36)
--- NOTE | 2019-04-10 13:35 | NUR ---
Nutrition F/U RD reviewed pt's current EMR record including diet Hx, physician notes, nursing notes, pertinent labs/meds/procedures, care trends, and care activity. Admission Dx: White out pneumonia PMH: HLD, HTN, CAD, s/p CABG Sx per physician notes Current Nutrition Support: Vital AF 1.2 at 60 ml/hr, Free Water Flush: 100TID via NGT x3 days Subjective Info: Pt was seen sleeping, intubated on vent at time of RD visit. Evidence of TF pump at bedside, but no TF hung/infusing. Per RN, pt has been NPO since midnight d/t pending EGD. RN stated that pt had been tolerating TF well yesterday. Current TF order is appropriate/adequate once TF is indicated again. Estimated Energy Expenditure (kcals/day) 1738 kcal/day (PSU 2009 for critical illness on vent) Estimated Protein Required (g/day) 114-152 gm/day (1.5-2 gm/kg Adj IBW for sepsis) Estimated Fluid Required (l/day) 2.4-2.9 L/day (25-30 ml/kg CBW for geriatric maintenance) Problem/Etiology/Signs/Symptoms Increased nutritional needs related to metabolic demands as evidenced by estimated nutritional requirements for sepsis. *ongoing Expected Outcomes/Goals - Monitor EN tolerance and intakes w/ goal of pt meeting 80-100% of estimated nutritional needs, labs trending WNL, normal GI function, and skin integrity/wt maintenance Dietitian Recommendations * Recommend continuing Vital AF 1.2 at 60 ml/hr, Free Water Flush: 100TID via NGT Provides: 1728 kcal/day, 108 gm protein/day, and 1168 ml free water/day Meets: 99% of estimated caloric needs and 95% of upper end of estimated protein needs Follow Up High Risk: F/U in 2-3 days
--- NOTE | 2019-04-10 13:40 | NUR ---
Dietitian Recommendations * Recommend continuing Vital AF 1.2 at 60 ml/hr, Free Water Flush: 100TID via NGT Provides: 1728 kcal/day, 108 gm protein/day, and 1168 ml free water/day Meets: 99% of estimated caloric needs and 95% of upper end of estimated protein needs LP, RD Please refer to Nutrition Assessment for details.
[2019-04-10] MEDS ORDERED: fentaNYL CITRATE/PF 100 MCG/2 ML AMP ONE ×2 (14:09)
[2019-04-10] MEDS ORDERED: SIMETHICONE 40 MG/0.6 ML ML ONE (14:10)
[2019-04-10] MEDS ORDERED: MIDAZOLAM HCL 5 MG/5 ML VIAL ONE ×2 (14:10)
[2019-04-10] MEDS ORDERED: FUROSEMIDE 40 MG/4 ML VIAL IVP ONE (15:00)
--- NOTE | 2019-04-10 15:30 | NUR ---
EGD Dr. Solano and GI team at [facility] for EGB procedure. RT and RN present for assistance. Patient tolerating well.
--- NOTE | 2019-04-10 15:30 | NUR ---
RT NOTES @bedside during EGD, FIO2 to 100% during procedure, titrated back down to 65%. Saturation in high 90s throughout the procedure. ETT remains secure.
--- NOTE | 2019-04-10 16:00 | NUR ---
RN Rounds/CHG CHG performed and linens changed. Reinserted OGT, patient tolerated well. No signs of distress noted. VSS.
[2019-04-10] MEDS: OCTREOTIDE ACETATE 1,250 MCG in NS 243.75 ML IV SCH (18:05)
--- NOTE | 2019-04-10 19:16 | NUR ---
Closing Note Patient endorsed to night auditor RN using SBAR format. Patient in no signs of distress at this time.
--- NOTE | 2019-04-10 19:54 | NUR ---
Opening Note Pt in bed, Alert, but lethargic at times. Pt primarily Dominican speaking. Sick Sinus syndrome noted on monitor. Pt has ETT in place. Settings: AC 24, TV450, FIO2 65%, +10. Pt tolerating well, saturatinos in the . Pt has MARK PICC Line in place, running IVF w/ 10 MEQ, Protonix drip, and Sandostatin Drip. LAC 20g in place as well. IV sites C/D/I. Pt has OGT in place running Tubefeeding. Tolerating well, no residual. Zavala catheter in place draining to gravity. Bed locked in lowest position, call light in reach, safety precautions in place, and call light in reach. Will continue to monitor. Addendum: 04/10/19 at 2009 by Jordy Dumont RN Pt does not have 10 MEQ K in his IVF. Wrong Pt.
[2019-04-10 20:25] LABS: BASOPHILS # (AUTO) 0.1 K/uL (0.0-0.2); EOSINOPHILS # (AUTO) 0.1 K/uL (0.0-0.4); HEMOGLOBIN 7.8 g/dL (14.0-18.0); MEAN CORPUSCULAR HEMOGLOBIN 31 pg (27-31)
[2019-04-10 20:44] LABS: BASOPHILS % (AUTO) 0.5 % (0.0-2.0); EOSINOPHILS % (AUTO) 0.6 % (0.0-4.0); HEMATOCRIT 24.6 % (36-54); LYMPHOCYTES # (AUTO) 0.5 K/uL (1.0-5.5); LYMPHOCYTES % (AUTO) 3.1 % (20.5-51.5); MEAN CORPUSCULAR HGB CONC 32 % (32-36); MEAN CORPUSCULAR VOLUME 97 fL (79.0-98.0); MONOCYTES # (AUTO) 1.2 K/uL (0.0-1.0); MONOCYTES % (AUTO) 6.8 % (1.7-9.3); NEUTROPHILS # (AUTO) 15.7 K/uL (1.8-7.7); RED BLOOD CELL COUNT(AUTO) 2.54 MIL/uL (4.2-6.2); RED CELL DISTRIBUTION WIDTH 18.5 % (9.0-15.0); WHITE BLOOD COUNT (AUTO) 17.6 K/uL (4.8-10.8)
[2019-04-10] MEDS: ATORVASTATIN 20 MG TABLET PO SCH (21:09)
[2019-04-10 21:28] LABS: PLATELET COUNT (AUTO) 28 K/uL (130-430)
--- NOTE | 2019-04-10 21:30 | NUR ---
Dr. Duval paged at this time for critical lab results. Spoke with exchange.
--- NOTE | 2019-04-10 21:40 | NUR ---
Called Spoke w/ Dr. Duval, made aware of Pt critical lab value. New orders received. Will carry out as ordered.
[2019-04-11] VITALS (33 sets, daily range): BP systolic 91–168
[2019-04-11] MEDS: IPRATROPIUM/ALBUTEROL SULFATE 3 ML AMPUL.NEB (DUONEB) INH SCH ×4 (01:37→19:24)
[2019-04-11] MEDS: PANTOPRAZOLE SODIUM 40 MG in NS 50 ML IV SCH ×4 (02:00→16:59)
--- NOTE | 2019-04-11 02:40 | NUR ---
BT INITIATION: Blood has been type and crossmatched. Blood sent from blood bank. Information on unit of blood checked against patient wristband at bedside by two nurses. All information matches. Patient or responsible constitution party informed of potential complications associated with blood transfusion. Informed of possible transfusion reaction symptoms. Aware of need to notify nurse at once of itching, shortness of breath, flushing, feeling of impending doom, or other symptoms not previously present. Vital signs taken within 5 minutes prior to initiation of transfusion. RN will remain with patient for first 15 minutes of transfusion at which time vital signs will be re-assessed.
--- NOTE | 2019-04-11 04:18 | NUR ---
Post Blood Transfusion PLT done running. Pt tolerated well. No s/s of reactions noted. Pt VSS. Afebrile. Will continue to monitor.
[2019-04-11 05:37] LABS: HEMATOCRIT 26.2 % (36-54); HEMOGLOBIN 7.9 g/dL (14.0-18.0); MEAN CORPUSCULAR HEMOGLOBIN 30 pg (27-31); MEAN CORPUSCULAR HGB CONC 30 % (32-36); MEAN CORPUSCULAR VOLUME 98 fL (79.0-98.0); PLATELET COUNT (AUTO) 86 K/uL (130-430); RED BLOOD CELL COUNT(AUTO) 2.68 MIL/uL (4.2-6.2); RED CELL DISTRIBUTION WIDTH 18.8 % (9.0-15.0)
[2019-04-11 05:49] LABS: ANION GAP 9 (5-15); CALCIUM 7.3 mg/dL (8.4-11.0); CHLORIDE 117 mmol/L (98-107); CREATININE 0.85 mg/dL (0.55-1.30); GLUCOSE 174 mg/dL (70-99); POTASSIUM 4.1 mmol/L (3.5-5.1); SODIUM SERUM 151 mmol/L (136-145); UREA NITROGEN, BLOOD 61 mg/dL (8-21); WHITE BLOOD COUNT (AUTO) 30.7 K/uL (4.8-10.8)
[2019-04-11 06:37] LABS: ATYPICAL LYMPHOCYTES % 0 % (0-0); BAND % (MANUAL) 2 % (0-6); BASOPHILS % (MANUAL) 0 % (0-2); EOSINOPHILS % (MANUAL) 0 % (0-7); LYMPHOCYTES % (MANUAL) 1 % (20-46); MONOCYTES % (MANUAL) 5 % (0-11)
[2019-04-11 07:00] LABS: INR 1.5 (0.80-1.20); PROTHROMBIN TIME 15.1 SECS (9.5-12.5)
--- NOTE | 2019-04-11 07:03 | NUR ---
Closing Note Pt in bed, lethargic. SR on the monitor, w/ noted Sick Sinus Syndrome. ETT in place, AC 24, 450, +10, 65%. Pt has MARK PICC in place, running IVF, Protonix Drip and Sandostatin Drip. Tolerating well. Pt has mohr catheter in place. OGT in place, running TF, no residual noted. PT has restraints in place. No skin issues noted. Will endorse report to oncoming RN.
--- NOTE | 2019-04-11 07:15 | NUR ---
Opening Note Patient report received via SBAR form endorsing RN
[2019-04-11] MEDS: ACETYLCYSTEINE 20% 4 ML VIAL (RT) INH SCH ×3 (07:39→19:24)
[2019-04-11] MEDS: METOPROLOL TARTRATE 25 MG TABLET PO SCH ×2 (09:00→09:07)
[2019-04-11] MEDS: ASPIRIN 81 MG TABLET(ECOTRIN) PO SCH (09:00)
--- NOTE | 2019-04-11 09:00 | NUR ---
Round Dr. Smith at bedside assessing patient, no new orders
[2019-04-11] MEDS: ISOSORBIDE MONONITRATE 30 MG TAB.ER.24H PO SCH (09:06)
[2019-04-11] MEDS: FAMOTIDINE 20 MG TABLET PO SCH (09:07)
[2019-04-11] MEDS: PREDNISONE 20 MG TABLET PO SCH (09:08)
[2019-04-11] MEDS: LISINOPRIL 20 MG TABLET PO SCH (09:08)
[2019-04-11] MEDS: CEFEPIME 1 GM in D5W 50 ML IV SCH ×2 (09:11→21:04)
[2019-04-11] MEDS: NACL 0.9% 1,000 ML IV SCH (09:12)
--- NOTE | 2019-04-11 11:00 | NUR ---
Nursing Note Wound care nurse at bedside assessing patient, wound care performed, patient repositioned
--- NOTE | 2019-04-11 11:00 | NUR ---
MD Round Dr. Kulkarni at bedside assessing patient, physician entered orders
--- NOTE | 2019-04-11 11:05 | NUR ---
WOUND EVALUATION: Late note for 1105 secondary to patient care. Wound Consult received from Dr. Grover. Thank you Dr. Grover for the consult. Patient received in a [place] Bed with a mattress, awake, nonverbal, nonresponsive to verbal commands. Patient is unable to turn in bed independently. Garry Score is an 11. Past Medical History: Hyperlipidemia, Hypertension, history of heart surgery. Recent Labs: WBC 30.7, RBC 2.68, hemoglobin 7.9, hematocrit 26.2, sodium 151, chloride 117, BUN 61, creatinine 0.85, glucose 174, calcium 7.3, alkaline phosphatase 155, albumin 2.1, serum total protein 4.6. PT 15.1, INR 1.5, fibrinogen 106. Microbiology: Blood culture results 2 negative. Urine culture results negative. Stool occult blood negative. MRSA screen results negative. Intrinsic factors that delay wound healing: Hypoalbuminemia, hyperglycemia. Extrinsic factors that delay wound healing: Immobility. Patient is presently third spacing with weeping of the bilateral upper extremities. Wound Assessment: 1. Right sacral area: Skin tear with linear shaped tear, and IAD with moisture associated skin damage. Open area has 100% red tissue. No odor, scant sanguineous drainage. Surrounding tissue has dark discolored tissue. Site measures 2.5 cm x 1.1 cm. 2. Left sacral area: IAD with moisture associated skin damage. Open area has 100% red tissue. No odor, scant sanguineous drainage. Surrounding tissue has dark discolored tissue. Site measures 1.0 cm x 0.5 cm. 3. Left buttock: IAD with moisture associated skin damage. Open area has 100% red tissue. No odor, scant sanguineous drainage. Surrounding tissue has dark discolored tissue. Site measures 1.6 cm x 1.5 cm. Recommend: Cleanse sites with normal saline. Apply Calmoseptine cream to wounds and chris-wounds. Apply Venelex ointment to any portion of open areas not covered by Calmoseptine cream. Cover with Sacral foam dressing. Perform site care daily, and as needed for dressing soiling or dislodgement. Reposition patient side to side every hour with one pillow underneath trunk and one pillow underneath pelvis. You should be able to slide your hand freely underneath wound area. 4. Right posterior forearm: Skin tear. Skin tear site is nearly approximated with no visible wound bed. Site has small serous drainage. Extremity has pitting edema. Skin care measures 0.1 cm x 1.1 cm. Cleanse skin tear with normal saline. Pat dry. Apply alginate dressing over skin tear site. Cover with ABD pad. Wrap loosely with Juvenal wrap. Perform site care daily, and as needed for dressing soiling or dislodgement. Wrap extremity with pillow cases. Also recommend: Reposition patient side to side every hour with one pillow underneath trunk and one pillow underneath pelvis. You should be able to slide your hand freely underneath wound area. Off-load pressure areas with pillows for pressure re-distribution. Offload, elevate and float bilateral heels with one pillow lengthwise under each extremity at all times. Perform skin care and monitor skin integrity Q shift. Use Calmoseptine cream on buttocks and other moisture susceptible areas QID and as needed for soiling. Maintain patient on a low air-loss mattress.
[2019-04-11] MEDS: FLUCONAZOLE 400 mg/ NS 200 ML IV SCH (11:51)
--- NOTE | 2019-04-11 13:00 | NUR ---
Round Dr. Messer at bedside assessing patient, physician entered orders
--- NOTE | 2019-04-11 15:00 | NUR ---
Round Dr. Man at bedside assessing patient, physician entered orders
[2019-04-11 15:18] LABS: BASOPHILS % (AUTO) 0.2 % (0.0-2.0); HEMATOCRIT 23.3 % (36-54); LYMPHOCYTES # (AUTO) 0.7 K/uL (1.0-5.5); LYMPHOCYTES % (AUTO) 3.4 % (20.5-51.5); MEAN CORPUSCULAR HEMOGLOBIN 30 pg (27-31); MEAN CORPUSCULAR HGB CONC 30 % (32-36); MEAN CORPUSCULAR VOLUME 100 fL (79.0-98.0); MONOCYTES # (AUTO) 0.7 K/uL (0.0-1.0); MONOCYTES % (AUTO) 3.2 % (1.7-9.3); NEUTROPHILS # (AUTO) 20.8 K/uL (1.8-7.7); NEUTROPHILS % (AUTO) 93.2 % (40.0-70.0); PLATELET COUNT (AUTO) 50 K/uL (130-430); RED BLOOD CELL COUNT(AUTO) 2.34 MIL/uL (4.2-6.2); RED CELL DISTRIBUTION WIDTH 19.3 % (9.0-15.0); WHITE BLOOD COUNT (AUTO) 22.3 K/uL (4.8-10.8)
[2019-04-11 15:45] LABS: BASOPHILS # (AUTO) 0.1 K/uL (0.0-0.2)
[2019-04-11] MEDS ORDERED: FUROSEMIDE 40 MG/4 ML VIAL IVP ONE (16:00)
[2019-04-11] MEDS ORDERED: METOLAZONE 2.5 MG TABLET PO ONE (16:00)
--- NOTE | 2019-04-11 16:00 | NUR ---
MD Round Dr. Duval at bedside assessing patient, physician entered orders
[2019-04-11] MEDS: OCTREOTIDE ACETATE 1,250 MCG in NS 243.75 ML IV SCH (16:59)
--- NOTE | 2019-04-11 17:00 | NUR ---
Nursing Note CHG bath given to patient, patient provided oral care, patient repositioned in bed, patient tolerated well
[2019-04-11] MEDS ORDERED: MENTHOL/ZINC OXIDE 113 GM OINT. TP PRN (18:15)
--- NOTE | 2019-04-11 18:30 | NUR ---
BLOOD TRANSFUSION INITIATION: Consent signed agreeing to administration of blood. Blood has been type and crossmatched. Blood sent from blood bank. Information on unit of blood checked against patient wristband at bedside by two nurses. All information matches. Patient or responsible libertarian informed of potential complications associated with blood transfusion. Informed of possible transfusion reaction symptoms. Aware of need to notify nurse at once of itching, shortness of breath, flushing, feeling of impending doom, or other symptoms not previously present. Vital signs taken within 5 minutes prior to initiation of transfusion. RN will remain with patient for first 15 minutes of transfusion at which time vital signs will be re-assessed.
--- NOTE | 2019-04-11 19:20 | NUR ---
Closing Note Patient report given to nightshift RN via SBAR
--- NOTE | 2019-04-11 20:00 | NUR ---
RESPONDS TO NOXIOUS AND PAINFUL STIMULI. ORALLY INTUBATED. SUCTIONED WITH MOD AMOUNT OF THIN PINK-TINGED MUCUS OBTAINED. ORAL CARE GIVEN. OGT FEEDING WITH VITAL AF 1.2 AT 60 CC/HR. RESIDUAL CHECK 0. MARK PICC LINE DRSG D/I. JUNG SOFT WRIST RESTRAINTS ON FOR SAFETY. ON SANDOSTATIN DRIP AT 50 MCG/HR. ON PROTONIX DRIP AT 8 MG/HR. SCD'S IN PLACE. ALVARENGA CATH PATENT DRAINING CLEAR YELLOW URINE TO GRAVITY. SR W/ PAC'S. 1 PRBC INFUSING.
[2019-04-11] MEDS: ATORVASTATIN 20 MG TABLET PO SCH (21:04)
[2019-04-11] MEDS: METOLAZONE 2.5 MG TABLET PO SCH (21:05)
--- NOTE | 2019-04-11 21:30 | NUR ---
2ND [facility] CANDELARIO [id number] DEVON.
--- NOTE | 2019-04-11 22:00 | NUR ---
HS CARE DONE. SUCTIONED. TURNED. CIRCULATION CHECK DONE. OGT FLUSHED WITH 100CC H2O.
[2019-04-11] MEDS: LORazepam 2 MG/ML VIAL IVP PRN (22:47)
--- NOTE | 2019-04-11 22:48 | NUR ---
BP 180/58. ATIVAN 1 MG IVP GIVEN FOR AGITATION.
[2019-04-12] VITALS (30 sets, daily range): BP systolic 105–167
--- NOTE | 2019-04-12 | NUR ---
SUCTIONED WITH SAME RESULTS. ORAL CARE GIVEN. TURNED. PULSES PALPABLE. RESIDUAL CHECK 0. CRYOPRECIPITATE CANDELARIO [id number]
[2019-04-12] MEDS: PANTOPRAZOLE SODIUM 40 MG in NS 50 ML IV SCH ×5 (00:25→21:13)
--- NOTE | 2019-04-12 02:00 | NUR ---
ASLEEP. 2ND UNIT CRYOPRECIPITATE DN [id number] HUNG. SUCTIONED. TURNED.
--- NOTE | 2019-04-12 04:00 | NUR ---
SLEPT FOR LONG PERIODS OF TIME. ORAL CARE GIVEN. SUCTIONED. REPOSITIONED. RESIDUAL CHECK 0.
--- NOTE | 2019-04-12 05:00 | NUR ---
1 MOD DARK BROWN WATERY STOOL DEFECATED. CLEANED. LISANDRO-CARE, ALVARENGA CARE, BACK CARE SKIN CARE GIVEN. ARMS WEEPING. PARTIAL LINEN CHANGE. DOES NOT ASSIST WITH TURNING. ANITA PROC WELL.
--- NOTE | 2019-04-12 06:00 | NUR ---
OGT FLUSHED WITH 100CC H2O. UO GOOD. PULSES PALPABLE. REMAINS IN GUARDED CONDITION.
[2019-04-12 07:06] LABS: ALANINE AMINOTRANSFERASE 31 U/L (12-78); ANION GAP 7 (5-15); ASPARTATE AMINOTRANSFERASE 44 U/L (10-37); CALCIUM 7.3 mg/dL (8.4-11.0); CHLORIDE 116 mmol/L (98-107); GLUCOSE 309 mg/dL (70-99); POTASSIUM 4.2 mmol/L (3.5-5.1); SODIUM SERUM 148 mmol/L (136-145); TOTAL BILIRUBIN 0.6 mg/dL (0.0-1.0); UREA NITROGEN, BLOOD 64 mg/dL (8-21)
--- NOTE | 2019-04-12 07:20 | NUR ---
Received patient and given report by [facility] shift nurse. Patient in no acute distress. Side rails x [address] Breathing even and unlabored. Call light with in reach.
[2019-04-12 07:22] LABS: INR 1.4 (0.80-1.20); PROTHROMBIN TIME 14.4 SECS (9.5-12.5)
[2019-04-12] MEDS: IPRATROPIUM/ALBUTEROL SULFATE 3 ML AMPUL.NEB (DUONEB) INH SCH ×2 (07:55→19:08)
[2019-04-12] MEDS: ACETYLCYSTEINE 20% 4 ML VIAL (RT) INH SCH ×2 (07:56→19:08)
[2019-04-12] MEDS: METOLAZONE 2.5 MG TABLET PO SCH ×2 (08:30→21:50)
[2019-04-12] MEDS: ISOSORBIDE MONONITRATE 30 MG TAB.ER.24H PO SCH (08:30)
[2019-04-12] MEDS: LISINOPRIL 20 MG TABLET PO SCH (08:31)
[2019-04-12] MEDS: METOPROLOL TARTRATE 25 MG TABLET PO SCH (08:32)
[2019-04-12] MEDS: PREDNISONE 20 MG TABLET PO SCH (08:32)
[2019-04-12] MEDS: NACL 0.9% 1,000 ML IV SCH (08:32)
[2019-04-12] MEDS: CEFEPIME 1 GM in D5W 50 ML IV SCH ×2 (08:33→21:50)
[2019-04-12 08:36] LABS: BASOPHILS % (AUTO) 0.1 % (0.0-2.0); HEMATOCRIT 27.1 % (36-54); HEMOGLOBIN 8.5 g/dL (14.0-18.0); LYMPHOCYTES # (AUTO) 0.5 K/uL (1.0-5.5); LYMPHOCYTES % (AUTO) 2.1 % (20.5-51.5); MEAN CORPUSCULAR HEMOGLOBIN 30 pg (27-31); MEAN CORPUSCULAR HGB CONC 32 % (32-36); MEAN CORPUSCULAR VOLUME 95 fL (79.0-98.0); MONOCYTES # (AUTO) 1.6 K/uL (0.0-1.0); MONOCYTES % (AUTO) 6.9 % (1.7-9.3); NEUTROPHILS # (AUTO) 20.9 K/uL (1.8-7.7); RED BLOOD CELL COUNT(AUTO) 2.83 MIL/uL (4.2-6.2); RED CELL DISTRIBUTION WIDTH 17.6 % (9.0-15.0)
[2019-04-12] MEDS: BALSAM PERU/CASTOR OIL 60 GM OINT...G. TP SCH (08:36)
[2019-04-12 08:56] LABS: PLATELET COUNT (AUTO) 33 K/uL (130-430)
[2019-04-12 09:22] LABS: NEUTROPHILS % (AUTO) 90.9 % (40.0-70.0)
[2019-04-12] MEDS: OCTREOTIDE ACETATE 1,250 MCG in NS 243.75 ML IV SCH (16:06)
[2019-04-12] MEDS ORDERED: FUROSEMIDE 40 MG/4 ML VIAL IVP ONE (17:00)
[2019-04-12] MEDS: ALBUMIN HUMAN 25% 50 ML IV SCH ×2 (17:46→23:14)
--- NOTE | 2019-04-12 18:30 | NUR ---
Discontinued bilateral restraints.
--- NOTE | 2019-04-12 19:15 | NUR ---
OPENING NOTE SBAR REPORT RECEIVED FROM ELVA GARCIA. CARE ASSUMED. PT LAYING IN BED INTUBATED. ETT SIZE 8.0, LIP LINE 24. VENT SETTINGS AC 20, TV 450, FiO2 65%, PEEP 8. O2 SATURATION 100%. PT SINUS RHYTHM ON MONITOR. PT HAS PICC LINE TO RIGHT UPPER EXTREMITY RUNNING NS @ 10ML/HR, SANDOSTATIN @ 10 ML/HR AND PROTONIX @ 10 ML/HR. PICC LINE DRESSING CLEAN DRY AND INTACT. EDEMA TO BILATERAL UPPER AND LOWER EXTREMITIES. UPPER EXTREMITIES WEEPING. DIFFUSE SCROTAL NON-PITTING EDEMA PRESENT. ABDOMEN SOFT NON DISTENDED. ALVARENGA CATHETER IN PLACE DRAINING TO GRAVITY. URINE YELLOW AND CLEAR. SACRAL WOUND PRESENT DRESSING CLEAN DRY AND INTACT. WOUND TO RIGHT EAR. DRESSING CLEAN DRY AND INTACT. BED LOCKED IN LOWEST POSITION. SAFETY PRECAUTIONS IN PLACE. CALL LIGHT WITHIN REACH. WILL CONTINUE TO MONITOR.
--- NOTE | 2019-04-12 19:20 | NUR ---
Endorsed patient and gave report to oncoming shift nurse. Patient in no acute distress. Side rails x [address] Breathing even and unlabored. Call light with in reach.
[2019-04-12] MEDS: ATORVASTATIN 20 MG TABLET PO SCH (21:50)
[2019-04-13] VITALS (31 sets, daily range): BP systolic 96–150
[2019-04-13] MEDS: IPRATROPIUM/ALBUTEROL SULFATE 3 ML AMPUL.NEB (DUONEB) INH SCH ×3 (01:00→20:00)
[2019-04-13] MEDS: PANTOPRAZOLE SODIUM 40 MG in NS 50 ML IV SCH ×5 (02:16→21:14)
[2019-04-13] MEDS: ALBUMIN HUMAN 25% 50 ML IV SCH (05:12)
[2019-04-13 06:47] LABS: BASOPHILS % (AUTO) 0.1 % (0.0-2.0); HEMATOCRIT 26.6 % (36-54); HEMOGLOBIN 8.3 g/dL (14.0-18.0); LYMPHOCYTES # (AUTO) 0.9 K/uL (1.0-5.5); MEAN CORPUSCULAR HEMOGLOBIN 30 pg (27-31); MEAN CORPUSCULAR HGB CONC 31 % (32-36); MEAN CORPUSCULAR VOLUME 97 fL (79.0-98.0); MONOCYTES # (AUTO) 2.1 K/uL (0.0-1.0); MONOCYTES % (AUTO) 8.9 % (1.7-9.3); NEUTROPHILS # (AUTO) 20.1 K/uL (1.8-7.7); RED BLOOD CELL COUNT(AUTO) 2.75 MIL/uL (4.2-6.2); RED CELL DISTRIBUTION WIDTH 18.1 % (9.0-15.0); WHITE BLOOD COUNT (AUTO) 23.1 K/uL (4.8-10.8)
[2019-04-13] MEDS: ACETYLCYSTEINE 20% 4 ML VIAL (RT) INH SCH ×2 (07:00→20:00)
[2019-04-13 07:16] LABS: PLATELET COUNT (AUTO) 32 K/uL (130-430)
[2019-04-13 07:23] LABS: INR 1.6 (0.80-1.20); PROTHROMBIN TIME 16.1 SECS (9.5-12.5)
[2019-04-13 07:27] LABS: ALANINE AMINOTRANSFERASE 31 U/L (12-78); ALBUMIN 2.1 g/dL (3.4-4.8); ANION GAP 7 (5-15); ASPARTATE AMINOTRANSFERASE 62 U/L (10-37); CALCIUM 7.7 mg/dL (8.4-11.0); CHLORIDE 116 mmol/L (98-107); GLUCOSE 274 mg/dL (70-99); POTASSIUM 4.1 mmol/L (3.5-5.1); SODIUM SERUM 149 mmol/L (136-145); TOTAL BILIRUBIN 0.7 mg/dL (0.0-1.0); UREA NITROGEN, BLOOD 73 mg/dL (8-21)
[2019-04-13] MEDS: NACL 0.9% 1,000 ML IV SCH (10:02)
[2019-04-13] MEDS: FUROSEMIDE 40 MG/4 ML VIAL IVP SCH (10:03)
[2019-04-13] MEDS: CEFEPIME 1 GM in D5W 50 ML IV SCH ×2 (10:03→21:14)
[2019-04-13] MEDS: LISINOPRIL 20 MG TABLET PO SCH (10:04)
[2019-04-13] MEDS: ISOSORBIDE MONONITRATE 30 MG TAB.ER.24H PO SCH (10:04)
[2019-04-13] MEDS: METOPROLOL TARTRATE 25 MG TABLET PO SCH (10:05)
[2019-04-13] MEDS: METOLAZONE 2.5 MG TABLET PO SCH ×2 (10:05→21:15)
[2019-04-13] MEDS: BALSAM PERU/CASTOR OIL 60 GM OINT...G. TP SCH (10:09)
[2019-04-13] MEDS: PREDNISONE 20 MG TABLET PO SCH (10:09)
[2019-04-13] MEDS: metroNIDAZOLE 250 mg/NS 50 ML IV SCH ×2 (14:16→22:34)
--- NOTE | 2019-04-13 15:50 | NUR ---
0800 PT RECIEVED EYES CLOSED, NOT MOVING EXTREMITIES OR FOLLOWING COMMANDS,PLATELET LEVEL REPORTED TO MD YU STATED NO TRANSFUSION NECESSARY, PT STILL ON OCTREOTIDE AND PROTONIX DRIPS, PT PUPILS EQUAL, JUNG, PT HAS GOOD COUGH, GRIMACES TO PAIN, PT ARMS OOZING MUCH PINK AND YELLOW FLUID, ARMS EDEMATOUS, ELEVATE ON PILLOWS, PT ARMS ALSO WRAPPED IN CHUX/PT PULSES ALL PALPABLE, AFEBRILE AND IN ZERO APPARENT DISTRESS//, VERIFIED NGT PLACEMENT/ZERO RESIDUAL//MW 1200 PT FRIENDS CAME TO BEDSIDE AND BEGAN SPEAKING T9O PT WHO RAISED EYEBROWS AND OPENED EYESBUT STILL NOT FOLLOWING COMMANDS//MW 1548 PAGED MD MONROY FOR TYLENOL ORDERS PT FRBRILE AT 101//MWS
[2019-04-13] MEDS: OCTREOTIDE ACETATE 1,250 MCG in NS 243.75 ML IV SCH (16:43)
--- NOTE | 2019-04-13 19:30 | NUR ---
Initial note Received patient resting in bed responds to pain and at times to verbal commands. Protonix and Sandostatin drip infusing . will continue to monitor
[2019-04-13] MEDS: ATORVASTATIN 20 MG TABLET PO SCH (21:15)
[2019-04-14] VITALS (32 sets, daily range): BP systolic 82–140
[2019-04-14] MEDS: IPRATROPIUM/ALBUTEROL SULFATE 3 ML AMPUL.NEB (DUONEB) INH SCH ×4 (00:55→20:00)
--- NOTE | 2019-04-14 01:20 | NUR ---
Full Bed bath given as patient was incontinent of stool. Stool was noted to be dark blood watery. patient was cleaned and linen and gown changed. repositioned for comfort. will continue to monitor
[2019-04-14] MEDS: PANTOPRAZOLE SODIUM 40 MG in NS 50 ML IV SCH ×3 (03:05→12:11)
[2019-04-14 06:12] LABS: BASOPHILS % (AUTO) 0.1 % (0.0-2.0); HEMATOCRIT 25.1 % (36-54); HEMOGLOBIN 7.6 g/dL (14.0-18.0); LYMPHOCYTES # (AUTO) 0.6 K/uL (1.0-5.5); LYMPHOCYTES % (AUTO) 2.6 % (20.5-51.5); MEAN CORPUSCULAR HEMOGLOBIN 30 pg (27-31); MEAN CORPUSCULAR HGB CONC 30 % (32-36); MEAN CORPUSCULAR VOLUME 98 fL (79.0-98.0); MONOCYTES # (AUTO) 1.8 K/uL (0.0-1.0); NEUTROPHILS # (AUTO) 20.4 K/uL (1.8-7.7); NEUTROPHILS % (AUTO) 89.3 % (40.0-70.0); RED BLOOD CELL COUNT(AUTO) 2.58 MIL/uL (4.2-6.2); WHITE BLOOD COUNT (AUTO) 22.8 K/uL (4.8-10.8)
[2019-04-14 06:15] LABS: PLATELET COUNT (AUTO) 27 K/uL (130-430)
[2019-04-14] MEDS: metroNIDAZOLE 250 mg/NS 50 ML IV SCH ×3 (06:33→22:05)
[2019-04-14 06:37] LABS: ALANINE AMINOTRANSFERASE 567 U/L (12-78); ALBUMIN 1.7 g/dL (3.4-4.8); ANION GAP 11 (5-15); ASPARTATE AMINOTRANSFERASE 1170 U/L (10-37); CALCIUM 7.5 mg/dL (8.4-11.0); CHLORIDE 116 mmol/L (98-107); CREATININE 1.36 mg/dL (0.55-1.30); POTASSIUM 4.3 mmol/L (3.5-5.1); SODIUM SERUM 150 mmol/L (136-145); TOTAL BILIRUBIN 0.6 mg/dL (0.0-1.0)
[2019-04-14 06:52] LABS: GLUCOSE 422 mg/dL (70-99); UREA NITROGEN, BLOOD 100 mg/dL (8-21)
--- NOTE | 2019-04-14 06:56 | NUR ---
Dr Duval called to report Platelet level 27. waiting for call back Received call from lab; received abnormal levels Glucose 422 and BUN 100. will pass in report to next nurse.
--- NOTE | 2019-04-14 07:35 | NUR ---
Opening Note Received plan of care via sbar from endorsing nurse Will GARCIA. Completed patient round. Safety measures met.
--- NOTE | 2019-04-14 07:49 | NUR ---
Called Dr. Grover to report lab results for glucose 422. Received orders for Q6 fingerstick and regular insulin sliding scale. Referral to dietary for possible change of tube feeding, consider glucerna.
[2019-04-14] MEDS: ACETYLCYSTEINE 20% 4 ML VIAL (RT) INH SCH ×3 (07:51→20:00)
--- NOTE | 2019-04-14 08:00 | NUR ---
RT NOTES- 75%FIO2 INCREASED FIO2 TO 75% BASED ON MORNING ABG RESULTS. JOSE DORANTES MADE AWARE.
[2019-04-14] MEDS: NACL 0.9% 1,000 ML IV SCH ×2 (08:54→19:36)
[2019-04-14] MEDS: LISINOPRIL 20 MG TABLET PO SCH (09:00)
[2019-04-14] MEDS: METOPROLOL TARTRATE 25 MG TABLET PO SCH (09:00)
--- NOTE | 2019-04-14 09:00 | NUR ---
Dr. Duval called back. Received orders for infusion of platelets 1 unit.
--- NOTE | 2019-04-14 09:00 | NUR ---
Dr. Kulkarni at bedside. Spoke to him about low BP and received orders for 3x albumin. Will hold antihypertensive meds.
[2019-04-14] MEDS: CEFEPIME 1 GM in D5W 50 ML IV SCH ×2 (09:04→22:04)
[2019-04-14] MEDS: ALBUMIN HUMAN 25% 50 ML IV SCH ×3 (09:04→16:50)
[2019-04-14] MEDS: PREDNISONE 20 MG TABLET PO SCH (09:04)
[2019-04-14] MEDS: FUROSEMIDE 40 MG/4 ML VIAL IVP SCH (09:05)
[2019-04-14] MEDS: ISOSORBIDE MONONITRATE 30 MG TAB.ER.24H PO SCH (09:05)
[2019-04-14] MEDS: METOLAZONE 2.5 MG TABLET PO SCH (09:07)
[2019-04-14] MEDS: BALSAM PERU/CASTOR OIL 60 GM OINT...G. TP SCH (09:57)
[2019-04-14] MEDS ORDERED: NS 100 ML IV ONE (10:00)
--- NOTE | 2019-04-14 10:15 | NUR ---
Called Dr. Howell to discuss sepsis risk. Patient is sinus tachy, platelet < 146789, sbp < 90, altered mental status, lactic acid > 2.
--- NOTE | 2019-04-14 10:30 | NUR ---
Received return call from Dr. Deepika Howell. Received orders to redraw the lactic acid.
--- NOTE | 2019-04-14 10:59 | NUR ---
Nutrition F/U note Admit Dx: White Out Pneumonia A- RD reviewed pt's current EMR including diet Hx, physician notes, nursing notes, pertinent labs/meds/procedures, care trends and care activity. Nutrition Consult received for elevated Glucose level (422mg/dL 04/14). Pt seen on vent, no EN infusing, EN currently on hold, on flagyl and prednisone. RD also reviewed [employer] notes 04/11. Pt may benefit from Glucerna 1.5 for better BG control and Mark Anthony for wound healing. Current Nutrition Support: NPO x 1 day Ht: 5'8 Wt: 209#/ 95 kg BMI: 31.8 kg/m2 ESTIMATED NUTRITIONAL REQUIREMENTS CALORIES/DAY: 1951 kcal/day (PSU 2009 for critical illness on vent) PROTEIN/DAY: 114-152 gm/day (1.5-2 gm/kg Adj IBW for sepsis) FLUID/DAY: 2.4-2.9 L/day (25-30ml/kg CBW for Geriatric maintenance) Problem/Etiology/Signs/Symptoms 1. Altered nutrition-related labs r/t medication interaction AEB elevated BG lab values 2/2 prednisone intake. (*new) 2. Increased nutritional needs related to metabolic demands as evidenced by estimated nutritional requirements for sepsis. *ongoing Expected Outcomes/Goals - Monitor EN tolerance and intakes w/ goal of pt meeting 80-100% of estimated nutritional needs, labs trending WNL, normal GI function, and skin integrity/wt maintenance Dietitian Recommendations * Recommend Glucerna 1.5 at 50ml/hr (goal rate), Mark Anthony BID, FWF 100ml TID via NGT Provides: 1960 kcal/day, 104 gm protein/day, and 1211 ml free water/day Meets: 100% of estimated caloric needs and 91% of lower end of estimated protein needs E: RD to F/U within 2-3 days MANOJ TELLEZ
--- NOTE | 2019-04-14 11:09 | NUR ---
Dietitian Recommendations * Recommend Glucerna 1.5 at 50ml/hr (goal rate), Mark Anthony BID, FWF 100ml TID via NGT Provides: 1960 kcal/day, 104 gm protein/day, and 1211 ml free water/day Meets: 100% of estimated caloric needs and 91% of lower end of estimated protein needs Please see Nutrition F/U note for details. CARE HOME, RD
--- NOTE | 2019-04-14 11:15 | NUR ---
WOUND RE-EVALUATION: Late note for 1115 secondary to patient care. Patient received in a [place] Bed with an IsoFlex JERI mattress with low air-loss therapy, eyes closed, nonverbal, nonresponsive to verbal commands. Patient is unable to turn in bed independently. Garry Score is a 10. Intrinsic factors that delay wound healing: Hypoalbuminemia, hyperglycemia. Extrinsic factors that delay wound healing: Immobility. Patient is presently third spacing with weeping of the bilateral upper extremities, Scrotum is grossly enlarged. Wound Assessment: 1. Right Buttock area: Skin tear with linear shaped tear, and IAD with moisture associated skin damage. Open area has 45% dark red tissue, 45% dark discolored tissue, 10% pink tissue. No odor, no drainage. Surrounding tissue has dark discolored tissue. Site measures 3.9 cm x 3.9 cm. 2. Left Sacral/Buttock area: IAD with moisture associated skin damage. Open area has 55% dark red tissue, 35% pink tissue, 10% dark discolored tissue. No odor, no drainage. Surrounding tissue has dark discolored tissue. Site measures 6.5 cm x 3.0 cm. 3. Buttock/Sulcus: Skin tear with linear shaped tear, and IAD with moisture associated skin damage. Open area has 100% pink tissue. No odor, no drainage. Surrounding tissue has dark discolored tissue. Site measures 0.3 cm x 0.1 cm. 4. Buttock/Sulcus, Inferior to Site 3: Skin tear with linear shaped tear, and IAD with moisture associated skin damage. Open area has 100% pink tissue. No odor, no drainage. Surrounding tissue has dark discolored tissue. Site measures 0.2 cm x 0.1 cm. 5. Buttock/Sulcus, Inferior to Site 4: Skin tear with linear shaped tear, and IAD with moisture associated skin damage. Open area has 100% pink tissue. No odor, no drainage. Surrounding tissue has dark discolored tissue. Site measures 1.8 cm x 0.5 cm. Recommend: Cleanse sites with normal saline. Apply Calmoseptine cream to wounds and chris-wounds. Apply Venelex ointment to any portion of open areas not covered by Calmoseptine cream. Cover with Sacral foam dressing. Perform site care daily, and as needed for dressing soiling or dislodgement. Reposition patient side to side every hour with a wedge underneath trunk and one pillow underneath pelvis. You should be able to slide your hand freely underneath wound area. 6. Left Posterior Proximal Thigh: Area of ecchymosis with purple and dark discolored tissue. Site measures 4.0 cm x 3.2 cm. Recommend: Offload site at all times pillow underneath pelvis and towel roll underneath thigh to float area. 7. Left Posterior Lateral Heel: Area of purple and dark discolored tissue. Site is firm, non-boggy. Site measures 5.0 cm x 4.0 cm. Recommend: Place heel into HeeLift boot. Cut lateral aspect of boot to allow heel to float. A rolled towel onto lateral aspect of boot above ankle keep lateral heel from touching boot. Check boot during hourly rounds to ensure the heel is freely floating. 8. Right posterior forearm: Skin tear. Recommend: Cleanse skin tear with normal saline. Pat dry. Apply alginate dressing over skin tear site. Cover with ABD pad. Wrap loosely with Juvenal wrap. Perform site care daily, and as needed for dressing soiling or dislodgement. Wrap extremity with pillow cases. Also recommend: Reposition patient side to side every hour with a wedge underneath trunk and one pillow underneath pelvis. You should be able to slide your hand freely underneath wound area. Off-load pressure areas with pillows for pressure re-distribution. Offload, elevate and float bilateral heels with one pillow lengthwise under each extremity at all times. Perform skin care and monitor skin integrity Q shift. Use Calmoseptine cream on buttocks and other moisture susceptible areas QID and as needed for soiling. Maintain patient on a low air-loss mattress.
--- NOTE | 2019-04-14 11:50 | NUR ---
RT NOTES- ETT 26CM LIP LINE ADVANCED ETT 1CM PER . SECURED AT 26CM LIP LINE. JOSE DORANTES MADE AWARE.
[2019-04-14] MEDS: NOREPINEPHRINE BITARTRATE 4 MG in D5W 246 ML IV PRN ×2 (12:12→19:36)
[2019-04-14] MEDS: INSULIN REGULAR, HUMAN 100 UNITS/ML, 10 ML VIAL (humuLIN R) SUBCUT PRN ×2 (12:19→17:47)
--- NOTE | 2019-04-14 12:19 | NUR ---
PAGED PAGED MYRIAM DAVID AT [phone] SPOKE WITH CAITLIN.
--- NOTE | 2019-04-14 12:50 | NUR ---
Spoke with Dr. Howell on the phone regarding pt meeting new septic protocol of starting levophed currently at 4 mcgs with BP 92/59, lactic acid #1 6.9, HR 117. Reviewed fluid status with MD. Orders left for NS at 150cc/hr but no bolus of fluids ordered because " pt already on sepsis protocol. We already know the patient is septic most probablly from his lungs.". MD declined further blood cultures.
--- NOTE | 2019-04-14 13:47 | NUR ---
GI DOCTOR PAGED GILLES GALAN GASTRO CALLED AT [phone] SPOKE WITH BECCA.
--- NOTE | 2019-04-14 14:13 | NUR ---
Received call from lab for lactic of 5.7. MD already aware of elevated lactic reported 6.9.
--- NOTE | 2019-04-14 16:27 | NUR ---
ASSEMBLER PIANO PAGED PAGED YAA DOBSON AT [phone] SPOKE WITH HIS DATA CONVERSION OPERATOR.
[2019-04-14] MEDS ORDERED: METOPROLOL TARTRATE 5 MG/5 ML VIAL IVP ONE (16:30)
--- NOTE | 2019-04-14 16:32 | NUR ---
Received call back from Dr. Kulkarni. Reported heart rate sustaining > 140. Received orders for lopressor 5mg IVP once. If heart rate is greater than 120 > repeat lopressor 5mg IVP once post 2 hours.
[2019-04-14] MEDS ORDERED: METOPROLOL TARTRATE 5 MG/5 ML VIAL ONE (16:56)
[2019-04-14] MEDS ORDERED: MENTHOL/ZINC OXIDE 113 GM OINT. TP PRN (17:45)
--- NOTE | 2019-04-14 19:15 | NUR ---
OPENING NOTE SBAR REPORT RECEIVED FROM JOSE E GARCIA. CARE ASSUMED. PT LAYING IN BED INTUBATED. ETT SIZE 8.0, LIP LINE 26. VENT SETTINGS AC 20, TV 450, FiO2 75%, PEEP 8. O2 SATURATION 100%. PT SINUS TACHY ON MONITOR. RATE 130. PT HAS PICC LINE TO RIGHT UPPER EXTREMITY RUNNING NS @ 150ML/HR AND LEVOPHED @ 10 MCG/KG/MIN. PICC LINE DRESSING CLEAN DRY AND INTACT. EDEMA TO BILATERAL UPPER AND LOWER EXTREMITIES. UPPER EXTREMITIES WEEPING. DIFFUSE SCROTAL NON-PITTING EDEMA PRESENT. ABDOMEN SOFT NON DISTENDED. ALVARENGA CATHETER IN PLACE DRAINING TO GRAVITY. URINE YADI. SACRAL WOUND PRESENT DRESSING CLEAN DRY AND INTACT. WOUND TO RIGHT EAR. DRESSING CLEAN DRY AND INTACT. WOUND TO LEFT HEAL. HEEL LIFT BOOT IN PLACE. BED LOCKED IN LOWEST POSITION. SAFETY PRECAUTIONS IN PLACE. CALL LIGHT WITHIN REACH. WILL CONTINUE TO MONITOR.
--- NOTE | 2019-04-14 19:35 | NUR ---
Closing Note Provided plan of care via sbar to receiving nurse Sarah GARCIA. Completed patient round. Safety measures met.
--- NOTE | 2019-04-14 20:20 | NUR ---
FFP TRANSFUSION STARTED TRANSFUSION OF 2ND BAG OF FFP. WILL CONTINUE TO MONITOR.
--- NOTE | 2019-04-14 21:46 | NUR ---
FFP TRANSFUSION COMPLETE 2ND UNIT OF FFP TRANSFUSED. NO REACTION NOTED. WILL CONTINUE TO MONITOR.
[2019-04-14] MEDS: PANTOPRAZOLE SODIUM 40 MG/VIAL (PROTONIX) IVP SCH (22:04)
[2019-04-14] MEDS: ATORVASTATIN 20 MG TABLET PO SCH (22:05)
[2019-04-15] VITALS (33 sets, daily range): BP systolic 45–129
[2019-04-15] MEDS: IPRATROPIUM/ALBUTEROL SULFATE 3 ML AMPUL.NEB (DUONEB) INH SCH ×4 (01:20→19:39)
[2019-04-15] MEDS: INSULIN REGULAR, HUMAN 100 UNITS/ML, 10 ML VIAL (humuLIN R) SUBCUT PRN ×4 (01:59→17:25)
[2019-04-15] MEDS: NOREPINEPHRINE BITARTRATE 4 MG in D5W 246 ML IV PRN ×3 (02:03→12:34)
[2019-04-15] MEDS: NACL 0.9% 1,000 ML IV SCH ×3 (03:14→17:16)
[2019-04-15] MEDS: metroNIDAZOLE 250 mg/NS 50 ML IV SCH ×3 (05:56→21:09)
[2019-04-15 06:17] LABS: MEAN CORPUSCULAR HEMOGLOBIN 30 pg (27-31); MEAN CORPUSCULAR HGB CONC 30 % (32-36); MEAN CORPUSCULAR VOLUME 99 fL (79.0-98.0); RED CELL DISTRIBUTION WIDTH 18.9 % (9.0-15.0)
[2019-04-15 06:29] LABS: HEMATOCRIT 19.7 % (36-54); HEMOGLOBIN 5.9 g/dL (14.0-18.0); PLATELET COUNT (AUTO) 25 K/uL (130-430); RED BLOOD CELL COUNT(AUTO) 1.99 MIL/uL (4.2-6.2); WHITE BLOOD COUNT (AUTO) 31.3 K/uL (4.8-10.8)
--- NOTE | 2019-04-15 06:37 | NUR ---
DR. BHAVANI STONE PAGED FOR CRITICAL RESULTS AT THIS TIME. SPOKE WITH MARIE AT THE EXCHANGE.
[2019-04-15 06:41] LABS: ANION GAP 11 (5-15); CALCIUM 7.2 mg/dL (8.4-11.0); CHLORIDE 117 mmol/L (98-107); CREATININE 2.31 mg/dL (0.55-1.30); POTASSIUM 4.7 mmol/L (3.5-5.1); SODIUM SERUM 147 mmol/L (136-145); TOTAL BILIRUBIN 0.8 mg/dL (0.0-1.0)
--- NOTE | 2019-04-15 06:43 | NUR ---
DR. SADIQ STONE PAGED FOR CRITICAL LABS AT THIS TIME. SPOKE WITH TAIWO AT THE EXCHANGE.
--- NOTE | 2019-04-15 06:50 | NUR ---
DR. SADIQ STONE MADE AWARE OF PT WBC INCREASE TO 31.3. NO NEW ORDERS RECEIVED AT THIS TIME. WILL CONTINUE TO MONITOR PT.
[2019-04-15 07:17] LABS: GLUCOSE 420 mg/dL (70-99); UREA NITROGEN, BLOOD 128 mg/dL (8-21)
[2019-04-15 07:18] LABS: ALANINE AMINOTRANSFERASE 2185 U/L (12-78); ATYPICAL LYMPHOCYTES % 0 % (0-0); BAND % (MANUAL) 10 % (0-6); BASOPHILS % (MANUAL) 0 % (0-2); EOSINOPHILS % (MANUAL) 0 % (0-7); LYMPHOCYTES % (MANUAL) 3 % (20-46); MONOCYTES % (MANUAL) 2 % (0-11)
--- NOTE | 2019-04-15 07:30 | NUR ---
Opening Note Received plan of care via sbar from endorsing JOSE Smith. Completed patient round. Safety measures met.
--- NOTE | 2019-04-15 07:34 | NUR ---
CLOSING NOTE PT LAYING IN BED. LEVOPHED @ 10 MCG/KG/MIN. NO SIGNS OR SYMPTOMS OF DISTRESS NOTED. SBAR REPORT GIVEN TO JOSE E GARCIA. WILL CONTINUE TO MONITOR.
--- NOTE | 2019-04-15 07:36 | NUR ---
CLOSING NOTE PT LAYING IN BED. LEVOPHED @ 10 MCG/KG/MIN. NO SIGNS OR SYMPTOMS OF DISTRESS NOTED. SBAR REPORT GIVEN TO JOSE E GARCIA. CARE ENDORSED.
--- NOTE | 2019-04-15 07:45 | NUR ---
Called Dr. Man to report BUN of 128. Received orders to reduce feeding to 30cc/hr.
--- NOTE | 2019-04-15 07:48 | NUR ---
Called Dr. Grover to report blood glucose of 420. No new orders.
[2019-04-15] MEDS: ACETYLCYSTEINE 20% 4 ML VIAL (RT) INH SCH ×3 (08:02→19:39)
[2019-04-15 08:28] LABS: ASPARTATE AMINOTRANSFERASE 3422 U/L (10-37)
[2019-04-15 08:55] LABS: INR 2.6 (0.80-1.20); PROTHROMBIN TIME 25.2 SECS (9.5-12.5)
[2019-04-15] MEDS: LISINOPRIL 20 MG TABLET PO SCH (09:00)
[2019-04-15] MEDS: METOPROLOL TARTRATE 25 MG TABLET PO SCH (09:00)
[2019-04-15] MEDS: PANTOPRAZOLE SODIUM 40 MG/VIAL (PROTONIX) IVP SCH ×2 (09:08→21:09)
[2019-04-15] MEDS: BALSAM PERU/CASTOR OIL 60 GM OINT...G. TP SCH (09:08)
[2019-04-15] MEDS: PREDNISONE 20 MG TABLET PO SCH (09:08)
[2019-04-15] MEDS: CEFEPIME 1 GM in D5W 50 ML IV SCH ×2 (09:09→21:08)
[2019-04-15] MEDS: ISOSORBIDE MONONITRATE 30 MG TAB.ER.24H PO SCH (09:09)
--- NOTE | 2019-04-15 09:45 | NUR ---
Spoke with Dr. Kulkarni regarding patient meeting sepsis protocol. Per Dr. Kulkarni patient is having major GI bleed and not septic. No new orders.
--- NOTE | 2019-04-15 10:01 | NUR ---
Call out to Dr. Smith to report shy's.
--- NOTE | 2019-04-15 10:25 | NUR ---
RT NOTES - AC 26, PEEP 5 ALREADY DONE BY . SHUN TOSCANO IS AWARE.
[2019-04-15] MEDS ORDERED: SODIUM BICARBONATE 8.4% VIAL 50 MEQ/50 ML VIAL INJ ONE (10:30)
--- NOTE | 2019-04-15 11:14 | NUR ---
Electric Meter Installer Note Patient is declining. Met with patient's friend, Sanket, at bedside. He is a vermin exterminator friend for many years. Sanket stated that patient signed a DPOA for health care naming Sanket as his decision maker about two to three years ago but that paperwork has been lost. GEOLOGICAL MANAGER asked patient in his short time of being oriented if he wanted Sanket to be his decision maker. Patient nodded. Advanced Directive was provided to friends at bedside but patient was confused by the time Sanket arrived that night. Sanket stated he believes patient would want a DNR order at this time. No family is available. Discussed with Ava GARCIA CM Director. Possibly an ethics meeting would be appropriate. Sanket also stated that he thought patient was supposed to make arrangements with a settlement he received a few years ago, but does not think this was done and has no way of knowing if it was done. He will discuss with other friends if they would like to make arrangements.
[2019-04-15] MEDS ORDERED: NOREPINEPHRINE BITARTRATE 16 MG in D5W 234 ML IV PRN (14:00)
[2019-04-15 17:22] LABS: CEA 24.4 ng/mL (0.0-4.7)
[2019-04-15] MEDS ORDERED: NACL 0.9% 1,000 ML IV SCH (18:00)
--- NOTE | 2019-04-15 19:08 | NUR ---
Closing Note Provided plan of care via sbar to receiving nurse Sarah GARCIA. Completed patient round.
--- NOTE | 2019-04-15 19:15 | NUR ---
OPENING NOTE SBAR REPORT RECEIVED FROM JOSE E GARCIA. CARE ASSUMED. PT LAYING IN BED INTUBATED. ETT SIZE 8.0, LIP LINE 26. VENT SETTINGS AC 20, TV 450, FiO2 75%, PEEP 8. O2 SATURATION 100%. PT SINUS TACHY ON MONITOR. RATE 135. PT HAS PICC LINE TO RIGHT UPPER EXTREMITY RUNNING NS @ 75 ML/HR AND LEVOPHED (QUAD STRENGTH) @ 40 MCG/KG/MIN. PICC LINE DRESSING CLEAN DRY AND INTACT. EDEMA TO BILATERAL UPPER AND LOWER EXTREMITIES. UPPER EXTREMITIES WEEPING. ABDOMEN SOFT NON DISTENDED. OG TUBE IN PLACE RUNNING VITAL AF @ 30 CC/HR. RESIDUAL 75CC. ALVARENGA CATHETER IN PLACE DRAINING TO GRAVITY. URINE YADI. FLEXI-SEAL IN PLACE BLACK STOOL WITH RED CLOTS IN BAG. SACRAL WOUND PRESENT DRESSING CLEAN DRY AND INTACT. WOUND TO RIGHT EAR. . WOUND TO LEFT HEAL. HEEL LIFT BOOT IN PLACE. BED LOCKED IN LOWEST POSITION. SAFETY PRECAUTIONS IN PLACE. CALL LIGHT WITHIN REACH. WILL CONTINUE TO MONITOR
[2019-04-15 20:38] LABS: HEMOGLOBIN 8.3 g/dL (14.0-18.0); MEAN CORPUSCULAR HEMOGLOBIN 30 pg (27-31); MEAN CORPUSCULAR HGB CONC 30 % (32-36); MEAN CORPUSCULAR VOLUME 100 fL (79.0-98.0); RED BLOOD CELL COUNT(AUTO) 2.81 MIL/uL (4.2-6.2); RED CELL DISTRIBUTION WIDTH 17.7 % (9.0-15.0)
[2019-04-15 20:48] LABS: PLATELET COUNT (AUTO) 29 K/uL (130-430); WHITE BLOOD COUNT (AUTO) 41.3 K/uL (4.8-10.8)
--- NOTE | 2019-04-15 20:55 | NUR ---
DR. Deepika BABCOCK MD PAGED REGARDING CRITICAL LABS AT THIS TIME. SPOKE WITH CANDY AT THE AT THE EXCHANGE.
[2019-04-15 21:06] LABS: BAND % (MANUAL) 17 % (0-6); BASOPHILS % (MANUAL) 0 % (0-2); EOSINOPHILS % (MANUAL) 0 % (0-7); LYMPHOCYTES % (MANUAL) 5 % (20-46); MONOCYTES % (MANUAL) 3 % (0-11)
[2019-04-15] MEDS: ATORVASTATIN 20 MG TABLET PO SCH (21:09)
[2019-04-15] MEDS ORDERED: PHENYLEPHRINE HCL 30 MG in NS 247 ML IV PRN (21:15)
[2019-04-15] MEDS ORDERED: PHENYLEPHRINE HCL 10 MG/ML VIAL (NEOSYNEPHRINE) ONE ×2 (21:21→21:26)
[2019-04-15] MEDS ORDERED: MEROPENEM 500 MG in NS 50 ML IV SCH (22:00)
[2019-04-15] MEDS ORDERED: MEROPENEM 500 MG VIAL IV ONE (22:51)
[2019-04-16] VITALS: BP_SYST 137
[2019-04-16] MEDS: IPRATROPIUM/ALBUTEROL SULFATE 3 ML AMPUL.NEB (DUONEB) INH SCH (00:52)
[2019-04-16 01:00] VITALS: BP_SYST 127
[2019-04-16 01:08] VITALS: BP_SYST 111
[2019-04-16 02:00] VITALS: BP_SYST 124
[2019-04-16 03:00] VITALS: BP_SYST 82
[2019-04-16] MEDS ORDERED: PHENYLEPHRINE HCL 10 MG/ML VIAL (NEOSYNEPHRINE) ONE (03:17)
[2019-04-16] MEDS ORDERED: ATROPINE SULFATE 1 MG/10 ML SYRINGE IVP ONE (03:24)
[2019-04-16] MEDS ORDERED: EPINEPHrine JECT 0.1 MG/ML SYR IVP ONE (03:24)
--- NOTE | 2019-04-16 03:25 | NUR ---
PT CODE BOZENA CALLED AT 0311. DR. BAKER AT BEDSIDE AND CALLED CODE AT 0325. PLEASE SEE CODE SHEET FOR DETAILS.
--- NOTE | 2019-04-16 03:45 | NUR ---
PAGED DR. MONROY'S ANSWERING SERVICE ABOUT PATIENT EXPIRATION SPOKE WITH JAZIEL
--- NOTE | 2019-04-16 03:47 | NUR ---
[facility] NOTIFICATION SPOKE TO CHERRIE AT [facility] REGARDING . [employer] [facility] . STATES LEGAL SUMMER INTERN WILL CALL SHORTLY TO FOLLOW UP ON DONATION.
--- NOTE | 2019-04-16 03:50 | NUR ---
EXPIRATION NOTIFICATION CALLED FRIEND ADINA [phone] AND KATIE [phone] TO NOTIFY OF PATIENT EXPIRATION. SPOKE TO ADINA AND KATIE. BOTH STATE NO ARRANGEMENTS ARE IN PLACE AND PATIENT HAS NO FAMILY.
--- NOTE | 2019-04-16 03:52 | NUR ---
INTEGRATION DEVELOPER SPOKE TO KENNY AT CORONERS OFFICE. BODY RELEASED BY INTEGRATION DEVELOPER. WILL CONTACT CONTRACTED MORTUARY. PT HAS NO NEXT OF [employer]. PT HAD NO ARRANGEMENTS. WILL CONTACT [facility] CONTRACTED MORTUARY.
--- NOTE | 2019-04-16 04:00 | NUR ---
PAGED PATIENT DR. ASENCIO SPOKE WITH TAIWO CARRENO, DR. RUSHING SPOKE WITH TAIWO MESA SPOKE WITH BECCA BAXTER SPOKE WITH Deepika GARCIA DR., DR. BENSON, DR. GHOTRA SPOKE WITH TAIWO
--- NOTE | 2019-04-16 04:00 | NUR ---
[facility] PT HAS NO FAMILY AND NO ARRANGEMENTS FOR MORTUARY HAVE BEEN MADE. HOSPITAL CONTRACTED MORTUARY CONTACTED FOR ARRANGEMENTS. TWO CALLS MADE AND MESSAGE LEFT WITH MORTUARY. WILL AWAIT CALL BACK AND TRY AGAIN LATER IN THE MORNING.
--- NOTE | 2019-04-16 04:02 | NUR ---
[facility] SPOKE TO MARGARETTE RALPH DYE WORKER WITH [employer]. STATES PATIENT NOT A VIABLE DONOR. REFERENCE NUMBER [id number]
--- NOTE | 2019-04-16 13:29 | NUR ---
SS NOTES/BODY HOLD: [employer] confirmed with [facility] that they are assisting us with the electronic certificate. SS faxed over Initial Decedent Referral Report to Public Street Sweeper Operator's Office. Pending case/referral #. Addendum: 04/16/19 at 1448 by Inga BERGMAN Case/Referral/State #: [id number], given to Yen from [facility].
--- NOTE | 2019-04-17 13:48 | NUR ---
Social Service Note: MANAGER STYLE contacted [facility] ([phone]); RU spoke with Shaista who stated that they have sent the certificate to the physicians office for review and cause of . Shaista states that she will follow up with the physician office for documentation needed.
--- NOTE | 2019-04-19 09:53 | NUR ---
Hand Tile Maker: follow up re. pt. in our [facility] HELPER called [facility] ([phone]), spoke to Yen. She stated they are currently full and cannot citrus picker Mr. Sevilla. Also they are waiting for Dr. Grover to sign the certif. Once that is signed the paperwork has to be sent to be registered. HOT SAW HELPER will remian available as needed.
== END 2019-04-16 03:25 | disposition expired | DRG 870 ==
LOC: SED 11:49 → SIC 16:48 → STU 03-31 18:56 → SIC 04-03 23:13
PROVIDERS: ADMIT Internal Medicine; ATTEND Internal Medicine
PROC: 5A1955Z Respiratory Ventilation, Greater than 96 Consecutive Hours (ICD-10-PCS; principal; 2019-04-05)
PROC: 02HV33Z Insertion of Infusion Device into Superior Vena Cava, Percutaneous Approach (ICD-10-PCS; 2019-04-05)
PROC: B548ZZA Ultrasonography of Superior Vena Cava, Guidance (ICD-10-PCS; 2019-04-05)
PROC: 0BH17EZ Insertion of Endotracheal Airway into Trachea, Via Natural or Artificial Opening (ICD-10-PCS; 2019-04-05)
PROC: 30233N1 Transfusion of Nonautologous Red Blood Cells into Peripheral Vein, Percutaneous Approach (ICD-10-PCS; 2019-04-08)
PROC: 30233R1 Transfusion of Nonautologous Platelets into Peripheral Vein, Percutaneous Approach (ICD-10-PCS; 2019-04-09)
PROC: 0DJ08ZZ Inspection of Upper Intestinal Tract, Via Natural or Artificial Opening Endoscopic (ICD-10-PCS; 2019-04-10)
PROC: 30233K1 Transfusion of Nonautologous Frozen Plasma into Peripheral Vein, Percutaneous Approach (ICD-10-PCS; 2019-04-10)
PROC: 30233M1 Transfusion of Nonautologous Plasma Cryoprecipitate into Peripheral Vein, Percutaneous Approach (ICD-10-PCS; 2019-04-15)
DX: A41.9 Sepsis, unspecified organism (principal); J18.9 Pneumonia, unspecified organism; J96.21 Acute and chronic respiratory failure with hypoxia; D65 Disseminated intravascular coagulation [defibrination syndrome]; E43 Unspecified severe protein-calorie malnutrition; R65.21 Severe sepsis with septic shock; K29.71 Gastritis, unspecified, with bleeding; K29.81 Duodenitis with bleeding; D68.9 Coagulation defect, unspecified; E87.2 Acidosis; G93.1 Anoxic brain damage, not elsewhere classified; N17.9 Acute kidney failure, unspecified; J94.2 Hemothorax; J90 Pleural effusion, not elsewhere classified; D50.0 Iron deficiency anemia secondary to blood loss (chronic); D63.8 Anemia in other chronic diseases classified elsewhere; E78.5 Hyperlipidemia, unspecified; I10 Essential (primary) hypertension; I27.20 Pulmonary hypertension, unspecified; I25.10 Atherosclerotic heart disease of native coronary artery without angina pectoris; Y95 Nosocomial condition; I48.0 Paroxysmal atrial fibrillation; Z95.1 Presence of aortocoronary bypass graft; Z79.899 Other long term (current) drug therapy; Z79.82 Long term (current) use of aspirin; Z68.31 Body mass index [BMI] 31.0-31.9, adult
CPT/HCPCS: 36415; 36600; 43235; 71045; 71250-TC; 76604; 76770; 80048; 80053; 81000-TC; 81003; 82043; 82150-TC; 82272; 82378; 82550-TC; 82570; 82570-TC; 82607; 82728; 82803-TC; 82962; 83540-TC; 83550-TC; 83605; 83690-TC; 83735-TC; 83880; 84100-TC; 84302-TC; 84484; 85007; 85025; 85027; 85379; 85384-TC; 85610-TC; 85730-TC; 86301; 86886; 86900; 86901; 86920; 87040-TC; 87070-TC; 87081; 87086; 87101; 87205-TC; 92950; 93005; 93306; 94003; 94640; 94760; 96361; 96365; 97110-GP; 97530-GP; 99291; C1751; C9113; G0378; J0171; J0330; J0456; J0461; J0692; J0696; J1450; J1650; J1815; J1940; J2060; J2185; J2250; J2354; J2370; J2543; J3010; J3430; J3490; J7030; J7040; J7050; J7060; J7512; J7608; J7613; J7620; P9012; P9021; P9034; P9046; P9059